=== PATIENT | female | born 1985 | race Caucasian/White ===

== ENCOUNTER 2017-05-02 12:43 | Emergency (ER) | payer SELFPAY ==
[~2017-05-02] VITALS: Ht 182.9 cm; Wt 107.0 kg
[~2017-05-02 12:43] MED LIST: HYDR-3533 PO; MEDR4PAK PO
[2017-05-02 12:44] VITALS: BP 129/75; PULSE 117; RESP 16; TEMP 98.7; O2SAT 95
== END 2017-05-02 15:03 | disposition left against medical advice (07) ==
LOC: NED 12:43
DX: R53.1 Weakness (principal)
CPT/HCPCS: 99281

== ENCOUNTER 2017-06-24 00:34 | Inpatient (IN) | payer SELFPAY ==
[~2017-06-24] VITALS: Ht 182.9 cm; Wt 98.0 kg
[2017-06-24 00:36] VITALS: BP 134/80; PULSE 115; RESP 16; TEMP 99.1; O2SAT 100
--- NOTE | 2017-06-24 01:10 | PD ---
HPI Chief Complaint: General Weakness Time Seen by Provider: 01:04 Travel History International Travel<30 days: No Contact w/Intl Traveler<30days: No Traveled to known affect area: No History of Present Illness HPI The patient is a 31 year old female who presents to the [facility] emergency department with a history of back pain and left hip pain that worsened approximately 1 1/2 months ago. The back pain is constant and first began last year. The left hip pain began 1 and 1/2 months ago and is coming and going. She has had intermittent fevers and chills with a MAXIMUM TEMPERATURE of 103.2- on 06/01. The patient reports that she was seen at [facility] regarding the symptoms approximately a month and a half ago and was diagnosed with severe sepsis and infection in her back. She reports that she left AGAINST MEDICAL ADVICE prior to the admission and further treatment. She denies having a primary care physician. She has not had any other treatment since then. She reports that the symptoms have worsened with time and now she has diffuse back pain. The patient reports that since June 04 she has also had tingling sensations in the right arm. She does have a history of carpal tunnel syndrome in the right wrist. She does have a history of IV drug use, however she reports that she last used in 2014. She reports that she has been grieving and depressed recently and has relapsed with using heroin, however she has been snorting it. The patient reports that she does have a history of hepatitis. She also has a prior history of endocarditis. She reports that over the last week she has had increased cough and congestion. She reports having intermittent chest pressure and shortness of breath. On review systems otherwise, she denies having any recent abdominal pain, vomiting, diarrhea, urinary symptoms, weakness of her extremities, slurred speech, facial droop, vision changes, or loss of bowel or bladder control. LMP: 03/2017, with prior history of irregular menstrual cycles. 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 Hx Anticoagulant Therapy: No Arthritis: No Asthma: Yes Blood Disorders: No Anxiety: Yes Depression: Yes Heart Rhythm Problems: No Cancer: No Cardiovascular Problems: No High Cholesterol: No Chemotherapy: No Chest Pain: No Congestive Heart Failure: No Cirrhosis: Yes (DRUG INDUCED) COPD: No Cerebrovascular Accident: No Diabetes: No Diminished Hearing: No Endocrine: Yes Gastrointestinal Disorders: Yes (HEMORRHOIDS ) GERD: No Genitourinary: Yes (UTI) Headaches: Yes Hiatal Hernia: No Immune Disorder: No Implanted Vascular Access Dvce: No Kidney Stones: Yes Musculoskeletal: Yes (CHRONIC BACK PAIN) Neurologic: Yes (RIGHT CARPAL TUNNEL,SEIZURE) Reproductive: No Respiratory: No Immunizations Current: Yes Migraines: Yes Renal Failure: No Seizures: Yes Sleep Apnea: No Thyroid Disease: No Ulcer: No Tetanus Vaccination: Never Vaccinated PNEUMOCCOCAL Vaccine (Year): 2 ?: Not LMP: 03/28/2017 : 5 Para: 3 Miscarriage: 2 Past Surgical History Narrative Surgical The patient's past surgical history is significant for a cholecystectomy, liver biopsy, biliary stent placement. Abdominal Surgery: No Cardiac Surgery: No Cholecystectomy: Yes (2009) Ear Surgery: No Endocrine Surgery: No Eye Surgery: No Genitourinary Surgery: No Hysterectomy: No Oral Surgery: No Thoracic Surgery: No Social History Alcohol Use: No Tobacco Use: Yes (previous smoker 1 - 1-1/2 ppd) Substance Use: Yes (snorting heroin) Allergies-Medications (Allergen,Severity, Reaction): Coded Allergies: acetaminophen (Unverified Allergy, Severe, SWELLING,HIVES, 06/24/17) ketorolac (Unverified Allergy, Severe, 06/24/17) propoxyphene (Unverified Allergy, Severe, SWELLING,HIVES, 06/24/17) tetanus immune globulin (Unverified Allergy, Severe, SICK, FEVER, 06/24/17 ) tetanus toxoid, adsorbed (Unverified Allergy, Severe, SWELLING,HIVES, 06/29) tramadol (Unverified Allergy, Severe, Anaphylaxis, 06/24/17) latex (Unverified Allergy, Intermediate, SWELLING, 06/24/17) Has an allergy to latex tape penicillin G (Unverified Allergy, Intermediate, rash, 06/24/17) lorazepam (Verified Adverse Reaction, Severe, 06/24/17) pt states "I wiged out on everyone and I can't remember anything that happened" Reported Meds & Prescriptions Reported Meds & Active Scripts Active Reported Medrol Dosepak (Methylprednisolone) 4 Mg Dspk 4 Mg PO DIRECTED Per Pharmacist direction Lortab (Hydrocodone-Acetaminophen) 5-325 Mg Tab 1 Tab PO Q6H PRN Review of Systems Except as stated in HPI: all other systems reviewed are Neg General / Constitutional: Positive: Fever, Chills Eyes: No: Visual changes HENT: Positive: Congestion, No: Headaches Cardiovascular: Positive: Chest Pain or Discomfort, Dyspnea on exertion Respiratory: Positive: Cough, Shortness of Breath Gastrointestinal: No: Nausea, Vomiting, Diarrhea, Abdominal Pain Genitourinary: No: Urgency, Frequency, Dysuria Musculoskeletal: Positive: Myalgias, Limited ROM, Pain Skin: No Rash Neurologic: No: Weakness, Focal Abnormalities, Change in Mentation, Slurred Speech, Sensory Disturbance Psychiatric: No: Depression Endocrine: No: Polydipsia Hematologic/Lymphatic: No: Easy Bruising Physical Exam Narrative General: The patient is well-developed well-nourished female in no acute distress, laying on her left side on my arrival to the room. Head and Neck exam: Head is normocephalic atraumatic. Eyes: EOMI, pupils are equal round and reactive to light. Nose: Midline septum with pink mucous membranes Mouth: Dentition unremarkable. Moist mucus membranes. Posterior oropharynx is not erythematous. No tonsillar hypertrophy. Uvula midline. Airway patent. Neck: No palpable lymphadenopathy. No nuchal rigidity. No thyromegaly. No spinous process tenderness to palpation. No step-off or crepitus. No erythema or ecchymosis. Cardiovascular: Regular rate and rhythm without murmurs, gallops, or rubs. No pulse deficit to the extremities. Lungs: Clear to auscultation bilaterally. No wheezes, rhonchi, or rales. Abdomen: Soft, without tenderness to palpation in all 4 quadrants of the abdomen. No guarding, rebound, or rigidity. Negative Hannacroix sign. Extremities: No clubbing, cyanosis, or edema. 2+ pulses in all 4 extremities. The patient reports having right-sided calf tenderness on palpation. She reports that this is chronic related to a prior history of DVT. Negative Homans sign. No palpable cords. Back: The patient has multiple areas of spinous process tenderness on palpation along the thoracic and lumbar spine as well as the sacrum. There is no step-off or crepitus. No erythema or ecchymosis. No costovertebral angle tenderness to palpation. Neurologic Exam: Cranial nerves 2-12 were intact on exam. Strength is 5/5 in all 4 extremities. No sensory deficits noted. Skin Exam: No rash noted. Intact skin that is warm and dry. Data Data Last Documented VS Vital Signs Date Time Temp Pulse Resp B/P (MAP) Pulse Ox O2 Delivery O2 Flow Rate FiO2 06/24/17 02:24 95 Room Air 06/24/17 02:12 93 16 06/24/17 00:36 99.1 Orders Orders Sepsis Workup Initiated (06/24/17 ) Complete Blood Count With Diff (06/24/17 01:32) Comprehensive Metabolic Panel (06/24/17 01:32) Lactic Acid Sepsis Protocol (06/24/17 01:32) Blood Culture (06/24/17 01:32) Iv Access Insert/Monitor (06/24/17 01:32) Oxygen Administration (06/24/17 01:32) Oximetry (06/24/17 01:32) Blood Glucose (06/24/17 01:32) Hip, Uni(Ap&Lat) W Ap Pelvis (06/24/17 03:44) Urinalysis - C+S If Indicated (06/24/17 03:45) Chest, Single Ap (06/24/17 03:45) Ed Urine Pregnancytest Poc (06/24/17 03:45) Sodium Chlor 0.9% 1000 Ml Inj (Ns 1000 M (06/24/17 04:00) Vancomycin Inj (Vancomycin Inj) (06/24/17 04:00) Aztreonam Inj (Azactam Inj) (06/24/17 04:00) Admit Order (Ed Use Only) (06/24/17 03:52) Metronidazole 500 Mg Inj (Flagyl 500 Mg (06/24/17 03:52) Creatine Kinase (Cpk) (06/24/17 03:57) Ckmb (Isoenzyme) Profile (06/24/17 03:57) Troponin I (06/24/17 03:57) Westergren Sedimentation Rate (06/24/17 03:57) Labs Laboratory Tests Test 06/24/17 01:45 06/24/17 03:52 White Blood Count 6.8 TH/MM3 Red Blood Count 5.03 MIL/MM3 Hemoglobin 13.3 GM/DL Hematocrit 38.9 % Mean Corpuscular Volume 77.4 FL Mean Corpuscular Hemoglobin 26.4 PG Mean Corpuscular Hemoglobin Concent 34.0 % Red Cell Distribution Width 14.7 % Platelet Count 238 TH/MM3 Mean Platelet Volume 7.4 FL Neutrophils (%) (Auto) 66.1 % Lymphocytes (%) (Auto) 25.0 % Monocytes (%) (Auto) 6.8 % Eosinophils (%) (Auto) 1.6 % Basophils (%) (Auto) 0.5 % Neutrophils # (Auto) 4.5 TH/MM3 Lymphocytes # (Auto) 1.7 TH/MM3 Monocytes # (Auto) 0.5 TH/MM3 Eosinophils # (Auto) 0.1 TH/MM3 Basophils # (Auto) 0.0 TH/MM3 CBC Comment DIFF FINAL Differential Comment Blood Urea Nitrogen 16 MG/DL Creatinine 0.86 MG/DL Random Glucose 68 MG/DL Total Protein 7.2 GM/DL Albumin 3.5 GM/DL Calcium Level 8.4 MG/DL Alkaline Phosphatase 89 U/L Aspartate Amino Transf (AST/SGOT) 29 U/L Alanine Aminotransferase (ALT/SGPT) 38 U/L Total Bilirubin 0.6 MG/DL Sodium Level 136 MEQ/L Potassium Level 3.9 MEQ/L Chloride Level 102 MEQ/L Carbon Dioxide Level 29.1 MEQ/L Anion Gap 5 MEQ/L Estimat Glomerular Filtration Rate 77 ML/MIN Lactic Acid Level 0.8 mmol/L Urine Color YELLOW Urine Turbidity HAZY Urine pH 5.5 Urine Specific Wisdom 1.033 Urine Protein 30 mg/dL Urine Glucose (UA) NEG mg/dL Urine Ketones NEG mg/dL Urine Occult Blood NEG Urine Nitrite NEG Urine Bilirubin NEG Urine Urobilinogen 2.0 MG/DL Urine Leukocyte Esterase MOD Urine RBC 6 /hpf Urine WBC 17 /hpf Urine Squamous Epithelial Cells 2 /hpf Urine Calcium Oxalate Crystals OCC /hpf Urine Bacteria RARE /hpf Urine Hyaline Casts 17 /lpf Urine Granular Casts 22 /lpf Urine Mucus MOD /lpf Microscopic Urinalysis Comment CULTURE INDICATED Urine Opiates Screen POS Urine Barbiturates Screen NEG Urine Amphetamines Screen POS Urine Benzodiazepines Screen NEG Urine Cocaine Screen NEG Urine Cannabinoids Screen POS MDM Medical Decision Making Medical Screen Exam Complete: Yes Emergency Medical Condition: Yes Medical Record Reviewed: Yes Interpretation(s) Last Impressions Chest X-Ray 06/24/17344 Signed Impressions: Service Date/Time: Saturday, June 24, 2017 03:59 - CONCLUSION: The lungs are clear. Anuj London MD Hip and Pelvis X-Ray 06/24/174 Signed Impressions: Service Date/Time: Saturday, June 24, 2017 03:59 - CONCLUSION: No evidence of recent bone injury. Anuj London MD Differential Diagnosis Discitis, versus epidural abscess, versus osteomyelitis of the spine, versus exacerbation of chronic back pain, versus sepsis Narrative Course During the course of the patients emergency department visit, the patients history, examination, and differential diagnosis were reviewed with the patient. The patient was placed on a surveillance monitor with oximetry and frequent blood pressure monitoring. The patient had IV access obtained and blood work sent for analysis. Blood cultures 2 were drawn, lactic acid was sent for analysis. Records from [facility] were obtained. The patient's [facility] visit was on May 01, 2017. The patient at that time underwent an MRI of the pelvis, CT scan of the abdomen and pelvis, blood work, and MRI of the lumbar spine with and without contrast. The lumbar spine MRI of the spine with and without contrast revealed prominent fluid within bilateral facet joints at L4-L5 with associated adjacent bone marrow edema and surrounding inflammation concerning for septic arthritis given the patient's history of prior IV drug use. No drainable paraspinal fluid collection or abscess seen at that time. There was also an endplate signal abnormality noted anteriorly at L5-S1 favored to represent degenerative change rather than osteomyelitis given intervening disc degeneration without disc edema. MRI of the pelvis shows findings within the distal aspect of the left gluteus marquez muscle belly suggestive of focal muscle strain from direct trauma versus focal myositis, somewhat atypical for small abscess. CT scan of the abdomen and pelvis at that time showed large bowel diverticulosis without diverticulitis, findings suggestive of hepatic cirrhosis with possible early portal hypertension. The patient was initially provided broad-spectrum antibiotic coverage to include Azactam, Flagyl, vancomycin IV. A call was placed out to the neurosurgeon on-call, Dr. Oseguera. He spoke to him at 4:15 AM regarding the patient's case. He was agreeable with the plan to continue antibiotic. He did recommend that the patient undergo MRI scanning again of the spine. He explained that this could wait until 7 AM. He will see the patient in consultation. The patients laboratory studies were reviewed and remarkable for a CBC that is unremarkable, sedimentation rate is 13. CMP is remarkable for a glucose of 68 which was checked for validity at the patient's bedside and was noted to be within normal limits. Lactic acid 0.8, CPK 55, troponin I less than 0.02, urinalysis shows moderate leukocyte esterase, RBC 6, WBC 17, rare bacteria, culture indicated. Urine drug screen was positive for opiates, amphetamines, cannabinoids. Radiology studies were reviewed and remarkable for a chest x-ray that showed no acute cardiopulmonary disease. X-ray of the left hip and pelvis shows no acute abnormality. The patients results were discussed with the patient, including the plan of care. I explained that further testing and/ or monitoring is indicated based on the patients history, examination, and/ or laboratory findings. Therefore, I recommended admission for additional evaluation. The patient expressed understanding and was agreeable with this plan. The patient was admitted to the hospital in guarded condition and sent to a bed under the care of [facility]. Physician Communication Physician Communication The patient's case including history, pertinent physical examination findings, and laboratory studies were discussed with Dr. Campos and Dr. Oseguera. It was agreed that the patient would be admitted to the [facility] service. Diagnosis Primary Impression: Septic arthritis Qualified Codes: M00.9 - Pyogenic arthritis, unspecified Additional Impression: Back pain Qualified Codes: M54.9 - Dorsalgia, unspecified Admitting Information Admitting Physician Requests: Eboni Garay MD Jun 24, 2017 01:10
[2017-06-24 02:09] LABS: AUTOMATED NEUTROPHIL # 4.5 TH/MM3 (1.8-7.7); BASOPHIL % 0.5 % (0.0-2.0); EOSINOPHIL # 0.1 TH/MM3 (0-0.4); EOSINOPHIL % 1.6 % (0.0-4.0); HEMATOCRIT 38.9 % (35.0-46.0); HEMO FLAGS DIFF FINAL; LYMPHOCYTE # 1.7 TH/MM3 (1.0-4.8); MEAN CELL VOLUME 77.4 FL (80.0-100.0); MEAN CORPUSCULAR HEMOGLOBIN 26.4 PG (27.0-34.0); MONO % 6.8 % (0.0-8.0); NEUT % 66.1 % (16.0-70.0); PLATELET COUNT 238 TH/MM3 (150-450); RED BLOOD COUNT 5.03 MIL/MM3 (4.00-5.30); RED CELL DISTRIBUTION WIDTH 14.7 % (11.6-17.2); WHITE BLOOD COUNT 6.8 TH/MM3 (4.0-11.0)
[2017-06-24 02:12] VITALS: BP 107/54; PULSE 93; RESP 16; O2SAT 95
[2017-06-24 02:24] VITALS: O2SAT 95
[2017-06-24 02:32] LABS: ALKALINE PHOSPHATASE 89 U/L (45-117); TOTAL BILIRUBIN ADULT 0.6 MG/DL (0.2-1.0)
[2017-06-24 02:33] LABS: ALT (GPT) 38 U/L (10-53); ANION GAP 5 MEQ/L (5-15); AST (GOT) 29 U/L (15-37); BICARBONATE 29.1 MEQ/L (21.0-32.0); BLOOD UREA NITROGEN 16 MG/DL (7-18); CHLORIDE 102 MEQ/L (98-107); GLOMERULAR FILTRATION RATE 77 ML/MIN (>89); SODIUM (NA) 136 MEQ/L (136-145)
[2017-06-24 02:36] LABS: POTASSIUM 3.9 MEQ/L (3.5-5.1)
[2017-06-24] MEDS ORDERED: metroNIDAZOLE 500 MG INJ 100 ML IV STA (03:52)
[2017-06-24] MEDS ORDERED: SODIUM CHLOR 0.9% 1000 ML INJ 1,000 ML IV ONE (04:00)
[2017-06-24] MEDS ORDERED: AZTREONAM INJ 2,000 MG in SODIUM CHLORIDE 0.9% INJ 100 ML IV ONE (04:00)
[2017-06-24] MEDS ORDERED: VANCOMYCIN INJ 1,000 MG in SODIUM CHLOR 0.9% 250 ML INJ 250 ML IV ONE (04:00)
--- NOTE | 2017-06-24 04:32 | RADRPT ---
EXAM DATE/TIME: 06/24/2017 03:59 [facility] COMPARISON: No previous studies available for comparison. INDICATIONS : Left hip pain post fall. MEDICAL HISTORY : Sepsis. SURGICAL HISTORY : None. ENCOUNTER: Initial ACUITY: 1 day PAIN SCORE: 7/10 LOCATION: Left hip. FINDINGS: Examination of the left hip was performed with AP Pelvis. The primary and secondary trabecular patte rn of the femoral neck is intact. The hip joint is of normal width without significant sclerosis or bony hypertrophy. The acetabulum is grossly intact. CONCLUSION: No evidence of recent bone injury. Anuj London MD on June 24, 2017 at 4:31 Board Certified Radiologist. This report was verified electronically.
--- NOTE | 2017-06-24 04:32 | RADRPT ---
EXAM DATE/TIME: 06/24/2017 03:59 [facility] COMPARISON: CHEST SINGLE AP, May 13, 2016, 17:09. INDICATIONS : Chest pain. MEDICAL HISTORY : Sepsis. SURGICAL HISTORY : None. ENCOUNTER: Initial ACUITY: 1 day PAIN SCORE: 1/10 LOCATION: Bilateral chest FINDINGS: A single view of the chest demonstrates the lungs to be symmetrically aerated without evidence of mas s, infiltrate or effusion. The cardiomediastinal contours are unremarkable. Osseous structures are intact. CONCLUSION: The lungs are clear. Anuj London MD on June 24, 2017 at 4:30 Board Certified Radiologist. This report was verified electronically.
[2017-06-24 04:36] LABS: BACTERIA, URINE RARE /hpf; BLOOD, URINE NEG (NEG); CALCIUM OXALATE CRYSTALS,URINE OCC /hpf; COMMENT (UR) CULTURE INDICATED; CULTURE IF INDICATED CULTURE INDICATED; GLUCOSE,URINE NEG (NEG); GRANULAR CAST, URINE 22 /lpf; HYALINE CAST, URINE 17 /lpf (RARE); KETONE, URINE NEG (NEG); MUCUS URINE MOD /lpf (OCC); NITRITE,URINE NEG (NEG); PH, URINE 5.5 (5.0-8.5); SQUAMOUS EPITHELIAL CELL URINE 2 /hpf (0-5); URINE COLOR YELLOW (YELLW/STRAW)
[2017-06-24 04:41] LABS: CREATINE KINASE 55 U/L (26-192)
[2017-06-24] MEDS ORDERED: ONDANSETRON HCL 4 MG/2 ML VIAL IV PUSH ONE (04:45)
[2017-06-24] MEDS ORDERED: HYDROmorphone HCL PF 2 MG/ML VIAL IV PUSH ONE (05:00)
[2017-06-24 05:19] VITALS: BP 108/61; PULSE 91; RESP 16; O2SAT 95
[2017-06-24] MEDS ORDERED: SODIUM CHLORIDE 0.9% FLUSH 10 ML FLUSH IV FLUSH PRN (06:15)
[2017-06-24] MEDS ORDERED: Vancomycin Consult Pharmacy 1 EA OTHER SCH (06:15)
[2017-06-24] MEDS ORDERED: ONDANSETRON HCL 4 MG/2 ML VIAL IVP PRN (06:15)
[2017-06-24] MEDS ORDERED: NALOXONE HCL 0.4 MG/ML AMP IV PUSH PRN (06:15)
[2017-06-24] MEDS ORDERED: VANCOMYCIN 1,000 MG/NS 250 ML IV SCH ×2 (07:30)
[2017-06-24 08:24] VITALS: BP 115/62; PULSE 94; RESP 18; TEMP 98.7; O2SAT 98
--- NOTE | 2017-06-24 08:58 | HHI.HP ---
HPI Service [facility] Primary Care Physician No Primary Care Physician Admission Diagnosis Back pain, history of MRI suspicious for spinal infection Diagnoses: Chief Complaint: Back pain Left hip pain Fever and chills Dysuria Travel History International Travel<30 Days: No Contact w/Intl Traveler <30 Da: No Traveled to Known Affected Are: No History of Present Illness Written by Joann Summers, acting as scribe for Dr. Chavez on 06/24/17 at 08: 57. 31yo female with PMHX significant for kidney stones, IVDU, hepatitis C, endocarditis, seizure, asthma, migraines and DVT RLE complaining of back and left hip pain with associated fever and chills. She states she began having back pain last year. She has been having left hip pain for the past 6 weeks. Reportedly, her temperature was as high as 103.2 on 06/01. She was seen at [facility] and diagnosed with severe sepsis with infection in her back. She reports leaving their facility AMA. Per review of the ED note, Records from [facility] were obtained. The patient's [facility] visit was on May 01, 2017. The patient at that time underwent an MRI of the pelvis, CT scan of the abdomen and pelvis, blood work, and MRI of the lumbar spine with and without contrast. The lumbar spine MRI of the spine with and without contrast revealed prominent fluid within bilateral facet joints at L4-L5 with associated adjacent bone marrow edema and surrounding inflammation concerning for septic arthritis given the patient's history of prior IV drug use. No drainable paraspinal fluid collection or abscess seen at that time. There was also an endplate signal abnormality noted anteriorly at L5-S1 favored to represent degenerative change rather than osteomyelitis given intervening disc degeneration without disc edema. MRI of the pelvis shows findings within the distal aspect of the left gluteus marquez muscle belly suggestive of focal muscle strain from direct trauma versus focal myositis, somewhat atypical for small abscess. CT scan of the abdomen and pelvis at that time showed large bowel diverticulosis without diverticulitis, findings suggestive of hepatic cirrhosis with possible early portal hypertension. She complains of dysuria and that her urine is more concentrated. Our ED physician discussed with neurosurgeon Dr. Oseguera who recommended another MRI of the spine. During my interview, patient became very upset and began making derogatory remarks stating she is "not going to stay in the hospital and be in pain and go through withdrawals". She stated she will go home and medicate herself. She is extremely noncompliant. She is refusing to have the MRI study performed ordered by Dr. Oseguera. Review of Systems Except as stated in HPI: all other systems reviewed are Neg Past Family Social History Past Medical History Hepatitis C IVDU/polysubstance abuse. Patient has used IV Dilaudid in the past. HX of sepsis secondary to staph aureus 05/2016 Hx of septic left knee joint Hx of endocarditis Seizures Anxiety/depression Liver cirrhosis DVT RLE Migraines Asthma Past Surgical History Liver biopsy Cholecystectomy Biliary stent placement Reported Medications Medication reconciliation not updated Allergies: Coded Allergies: acetaminophen (Unverified Allergy, Severe, SWELLING,HIVES, 06/24/17) ketorolac (Unverified Allergy, Severe, 06/24/17) propoxyphene (Unverified Allergy, Severe, SWELLING,HIVES, 06/24/17) tetanus immune globulin (Unverified Allergy, Severe, SICK, FEVER, 06/24/17 ) tetanus toxoid, adsorbed (Unverified Allergy, Severe, SWELLING,HIVES, 06/29) tramadol (Unverified Allergy, Severe, Anaphylaxis, 06/24/17) latex (Unverified Allergy, Intermediate, SWELLING, 06/24/17) Has an allergy to latex tape penicillin G (Unverified Allergy, Intermediate, rash, 06/24/17) lorazepam (Verified Adverse Reaction, Severe, 06/24/17) pt states "I wiged out on everyone and I can't remember anything that happened" Active Ordered Medications Current Medications Medications (Trade) Dose Ordered Sig/Radha Route Start Time Stop Time Status Last Admin (NS Flush) 2 ml UNSCH PRN IV FLUSH 06/24/17 06:15 (NS Flush) 2 ml BID IV FLUSH 06/24/17 09:00 (Zofran Inj) 4 mg Q6H PRN IVP 06/24/17 06:15 (Narcan Inj) 0.4 mg UNSCH PRN IV PUSH 06/24/17 06:15 Aztreonam 2000 mg/ Sodium Chloride 100 ml @ 200 mls/hr Q8H IV 06/24/17 12:27 Pharmacy Profile Note 0 ml @ 0 mls/hr UNSCH OTHER 06/24/17 06:15 Metronidazole 100 ml @ 100 mls/hr Q8H IV 06/24/17 13:00 Vancomycin HCl 1000 mg/Sodium Chloride 250 ml @ 250 mls/hr DAILY@0730 IV 06/24/17 07:30 06/24/17 10:00 Family History CAD Diabetes Social History Patient smokes 1 pack cigarettes daily. She admits to IVDU. She denies any EtOH use. She recently lost her . Physical Exam Vital Signs Vital Signs Date Time Temp Pulse Resp B/P (MAP) Pulse Ox O2 Delivery O2 Flow Rate FiO2 06/24/17 08:24 98.7 94 18 115/62 (79) 98 06/24/17 05:19 91 16 108/61 (77) 95 Room Air 06/24/17 02:24 95 Room Air 06/24/17 02:12 93 16 107/54 (71) 95 Room Air 06/24/17 00:36 99.1 115 16 134/80 (98) 100 Physical Exam GENERAL: This is a well-nourished, well-developed patient, in no apparent distress. Awake and alert, tearful. SKIN: No rashes, ecchymoses or lesions. Cool and dry. HEAD: Atraumatic. Normocephalic. No temporal or scalp tenderness. EYES: Pupils equal round and reactive. Extraocular motions intact. No scleral icterus. No injection or drainage. ENT: Nose without bleeding or purulent drainage. Throat without erythema, tonsillar hypertrophy or exudate. Uvula midline. Airway patent. Extremely poor dentition noted. NECK: Trachea midline. No lymphadenopathy. Supple, nontender, no meningeal signs. CARDIOVASCULAR: Regular rate and rhythm without murmurs, gallops, or rubs. RESPIRATORY: Breath sounds equal bilaterally. (+)Few scattered wheezes noted throughout lung mcdonnell. GASTROINTESTINAL: Abdomen soft, non-tender, nondistended. No hepato-splenomegaly , or palpable masses. No guarding. (+)Right sided CVAT MUSCULOSKELETAL: Extremities without clubbing, cyanosis, or edema. No joint tenderness, effusion, or edema noted. No calf tenderness. (+)tenderness to palpation over right sided paraspinous muscles. NEUROLOGICAL: Awake and alert. Motor and sensory grossly within normal limits. Five out of 5 muscle strength in all muscle groups. No focal neurologic finding appreciated. Normal speech. Laboratory Laboratory Tests Test 06/24/17 01:45 06/24/17 03:52 06/24/17 04:15 White Blood Count 6.8 Red Blood Count 5.03 Hemoglobin 13.3 Hematocrit 38.9 Mean Corpuscular Volume 77.4 Mean Corpuscular Hemoglobin 26.4 Mean Corpuscular Hemoglobin Concent 34.0 Red Cell Distribution Width 14.7 Platelet Count 238 Mean Platelet Volume 7.4 Neutrophils (%) (Auto) 66.1 Lymphocytes (%) (Auto) 25.0 Monocytes (%) (Auto) 6.8 Eosinophils (%) (Auto) 1.6 Basophils (%) (Auto) 0.5 Neutrophils # (Auto) 4.5 Lymphocytes # (Auto) 1.7 Monocytes # (Auto) 0.5 Eosinophils # (Auto) 0.1 Basophils # (Auto) 0.0 CBC Comment DIFF FINAL Differential Comment Blood Urea Nitrogen 16 Creatinine 0.86 Random Glucose 68 Total Protein 7.2 Albumin 3.5 Calcium Level 8.4 Alkaline Phosphatase 89 Aspartate Amino Transf (AST/SGOT) 29 Alanine Aminotransferase (ALT/SGPT) 38 Total Bilirubin 0.6 Sodium Level 136 Potassium Level 3.9 Chloride Level 102 Carbon Dioxide Level 29.1 Anion Gap 5 Estimat Glomerular Filtration Rate 77 Lactic Acid Level 0.8 Urine Color YELLOW Urine Turbidity HAZY Urine pH 5.5 Urine Specific [place] 1.033 Urine Protein 30 Urine Glucose (UA) NEG Urine Ketones NEG Urine Occult Blood NEG Urine Nitrite NEG Urine Bilirubin NEG Urine Urobilinogen 2.0 Urine Leukocyte Esterase MOD Urine RBC 6 Urine WBC 17 Urine Squamous Epithelial Cells 2 Urine Calcium Oxalate Crystals OCC Urine Bacteria RARE Urine Hyaline Casts 17 Urine Granular Casts 22 Urine Mucus MOD Microscopic Urinalysis Comment CULTURE INDICATED Erythrocyte Sedimentation Rate 13 Total Creatine Kinase 55 Troponin I LESS THAN 0.02 Date/Time Source Procedure Growth Status 06/24/17 01:50 Blood Peripheral Aerobic Blood Culture Pending Received 06/24/17 01:50 Blood Peripheral Anaerobic Blood Culture Pending Received 06/24/17 03:52 Urine Clean Catch Urine Culture Pending Received Result Diagram: 06/24/17 0145 06/24/17 0145 Imaging Last Impressions Chest X-Ray 06/24/175 Signed Impressions: Service Date/Time: Saturday, June 24, 2017 03:59 - CONCLUSION: The lungs are clear. Anuj London MD Hip and Pelvis X-Ray 06/24/17 0344 Signed Impressions: Service Date/Time: Saturday, June 24, 2017 03:59 - CONCLUSION: No evidence of recent bone injury. Anuj London MD Per review of ED note: Records from [facility] were obtained. The patient's [facility] visit was on May 01, 2017. The patient at that time underwent an MRI of the pelvis, CT scan of the abdomen and pelvis, blood work, and MRI of the lumbar spine with and without contrast. The lumbar spine MRI of the spine with and without contrast revealed prominent fluid within bilateral facet joints at L4-L5 with associated adjacent bone marrow edema and surrounding inflammation concerning for septic arthritis given the patient's history of prior IV drug use. No drainable paraspinal fluid collection or abscess seen at that time. There was also an endplate signal abnormality noted anteriorly at L5-S1 favored to represent degenerative change rather than osteomyelitis given intervening disc degeneration without disc edema. MRI of the pelvis shows findings within the distal aspect of the left gluteus marquez muscle belly suggestive of focal muscle strain from direct trauma versus focal myositis, somewhat atypical for small abscess. CT scan of the abdomen and pelvis at that time showed large bowel diverticulosis without diverticulitis, findings suggestive of hepatic cirrhosis with possible early portal hypertension. Caprini VTE Risk Assessment Caprini VTE Risk Assessment: No/Low Risk (score <= 1) Caprini Risk Assessment Model Point Value = 1 Point Value = 2 Point Value = 3 Point Value = 5 Age 41-60 Minor surgery BMI > 25 kg/m2 Swollen legs Varicose veins or History of unexplained or recurrent spontaneous Oral contraceptives or hormone replacement Sepsis (< 1 month) Serious lung disease, including pneumonia (< 1 month) Abnormal pulmonary function Acute myocardial infarction Congestive heart failure (< 1 month) History of inflammatory bowel disease Medical patient at bed rest Age 61-74 Arthroscopic surgery Major open surgery (> 45 min) Laparoscopic surgery (> 45 min) Malignancy Confined to bed (> 72 hours) Immobilizing plaster cast Central venous access Age >= 75 History of VTE Family history of VTE Factor V Leiden Prothrombin [id number] Lupus anticoagulant Anticardiolipin antibodies Elevated serum homocysteine Heparin-induced thrombocytopenia Other congenital or acquired thrombophilia Stroke (< 1 month) Elective arthroplasty Hip, pelvis, or leg fracture Acute spinal cord injury (< 1 month) Prophylaxis Regimen Total Risk Factor Score Risk Level Prophylaxis Regimen 0-1 Low Early ambulation 2 Moderate Order ONE of the following: *Sequential Compression Device (SCD) *Heparin 5000 units SQ BID 3-4 Higher Order ONE of the following medications: *Heparin 5000 units SQ TID *Enoxaparin/Lovenox 40 mg SQ daily (WT < 150 kg, CrCl > 30 mL/min) *Enoxaparin/Lovenox 30 mg SQ daily (WT < 150 kg, CrCl > 10-29 mL/min) *Enoxaparin/Lovenox 30 mg SQ BID (WT < 150 kg, CrCl > 30 mL/min) AND/OR *Sequential Compression Device (SCD) 5 or more Highest Order ONE of the following medications: *Heparin 5000 units SQ TID (Preferred with Epidurals) *Enoxaparin/Lovenox 40 mg SQ daily (WT < 150 kg, CrCl > 30 mL/min) *Enoxaparin/Lovenox 30 mg SQ daily (WT < 150 kg, CrCl > 10-29 mL/min) *Enoxaparin/Lovenox 30 mg SQ BID (WT < 150 kg, CrCl > 30 mL/min) AND *Sequential Compression Device (SCD) Assessment and Plan Assessment and Plan 31yo female with PMHX significant for kidney stones, IVDU, hepatitis C, endocarditis, seizure, asthma, migraines and DVT RLE complaining of back and left hip pain with associated fever and chills. Suspected discitis/osteomyelitis in patient with hx of IVDU/polysubstance abuse vs symptomatic nephrolithiasis HX of sepsis secondary to staph aureus 05/2016 Reports from [facility] reviewed: MRI lumbar spine showing fluid within the bilateral facet joints at L4 5 with associated adjacent bone marrow edema and surrounding inflammation concerning for septic arthritis given the patient's history of prior IV drug use. No drainable paraspinal fluid collection or abscess seen at that time. MRI of the pelvis shows findings within the distal aspect of the left gluteus marquez muscle belly suggestive of focal muscle strain from direct trauma versus focal myositis, somewhat atypical for small abscess. CT abd/pelvis shows large bowel diverticulosis without diverticulitis, findings suggestive of hepatic cirrhosis with possible early portal hypertension. - xray left hip unremarkable, images personally reviewed. - patient given broad spectrum antibiotics to include Azactam, Flagyl and IV Vancomycin. Hold off on giving any further antibiotics until ID gives recommendations. - ID consulted, appreciate recommendations - Consult Dr. Oseguera, appreciate assistance. MRI spine ordered per Dr. Oseguera recommendations. Follow up on results. - ESR 13, WBC 6.8 - UA positive calcium oxalate crystals and RBCs. Obtain CT abd/pelvis to r/ o possible kidney stones - follow up on blood culture results UTI - UA suggestive of UA with mod leukocytes, 17 WBCs and rare bacteria - follow up on final urine culture results IVDU Polysubstance abuse - patient admits to snorting Heroin last night - denies any IVDU since 2014 - drug seeking behavior. Patient initially listing allergies to Toradol, Darvocet, Morphine and Tramadol. When patient informed there is no Dilaudid in the hospital, patient stated she never said she had an allergy to Morphine. Given Morphine 4mg IV x 1 dose. Liver cirrhosis Hx of hepatitis C - standard precautions - avoid hepatotoxic agents Discussed Condition With Patient, nursing staff This note was transcribed by scribe [Joann Summers ]. I, Dr. Jb Chavez personally performed the history, physical exam, and medical decision making; and confirmed the accuracy of the information in the transcribed note. Authenticated by Dr. Jb Chavez on 06/24/17 at 08:57. Physician Certification 2 Midnight Certification Type: Admission for Inpatient Services Order for Inpatient Services The services are ordered in accordance with Medicare regulations or non- Medicare payer requirements, as applicable. In the case of services not specified as inpatient-only, they are appropriately provided as inpatient services in accordance with the 2-midnight benchmark. Estimated LOS (days): 3 3 days is the estimated time the patient will need to remain in the hospital, assuming treatment plan goals are met and no additional complications. Post-Hospital Plan: Not yet determined Joann Summers Jun 24, 2017 08:58 Jb Chavez MD Jun 24, 2017 11:42
[2017-06-24] MEDS ORDERED: SODIUM CHLORIDE 0.9% FLUSH 10 ML FLUSH IV FLUSH SCH (09:00)
[2017-06-24] MEDS ORDERED: MORPHINE SULFATE 4 MG/ML INJ IV PUSH ONE (10:30)
[2017-06-24] MEDS ORDERED: AZTREONAM INJ 2,000 MG in SODIUM CHLORIDE 0.9% INJ 100 ML IV SCH (12:27)
[2017-06-24] MEDS ORDERED: metroNIDAZOLE 500 MG INJ 100 ML IV SCH (13:00)
[2017-06-24] MEDS ORDERED: VANCOMYCIN INJ 2,000 MG in SODIUM CHLORID 0.9% 500 ML INJ 500 ML IV SCH (14:00)
[2017-06-26] MEDS ORDERED: PHARMACY ORDERED LAB ONE (01:45)
== END 2017-06-24 12:22 | disposition left against medical advice (07) | DRG 552 ==
LOC: NEPE 00:34 → NEDA 03:57 → NEPFCDU 06:58
PROVIDERS: ADMIT Hospitalist; ATTEND Hospitalist
DX: M46.40 Discitis, unspecified, site unspecified (principal); M00.9 Pyogenic arthritis, unspecified; K76.6 Portal hypertension; K74.60 Unspecified cirrhosis of liver; N39.0 Urinary tract infection, site not specified; Z86.718 Personal history of other venous thrombosis and embolism; Z87.442 Personal history of urinary calculi; Z91.19 Patient's noncompliance with other medical treatment and regimen; Z76.5 Malingerer [conscious simulation]; M51.37 Other intervertebral disc degeneration, lumbosacral region; K57.90 Diverticulosis of intestine, part unspecified, without perforation or abscess without bleeding; J45.909 Unspecified asthma, uncomplicated; F17.210 Nicotine dependence, cigarettes, uncomplicated; M25.552 Pain in left hip; R30.0 Dysuria; B19.20 Unspecified viral hepatitis C without hepatic coma; F32.9 Major depressive disorder, single episode, unspecified; F41.9 Anxiety disorder, unspecified; G43.909 Migraine, unspecified, not intractable, without status migrainosus; Z91.040 Latex allergy status
CPT/HCPCS: 71010; 73502; 80053; 80307; 81001; 82550; 83605; 84484; 84703; 85025; 85652; 87040; 87077; 87086; 87186; J1170; J2270; J2405; J3370; J7030; J7050

== ENCOUNTER 2017-08-10 06:29 | Emergency (ER) | payer SELFPAY ==
[~2017-08-10] VITALS: Ht 182.9 cm; Wt 100.0 kg
[2017-08-10 06:33] VITALS: BP 140/85; PULSE 120; RESP 16; TEMP 98.7; O2SAT 98
[2017-08-10] MEDS ORDERED: SODIUM CHLOR 0.9% 1000 ML INJ 1,000 ML IV ONE ×3 (07:30→09:15)
--- NOTE | 2017-08-10 08:05 | PD ---
HPI . Feeling poorly Chief Complaint: Anxiety Time Seen by Provider: 07:04 Travel History International Travel<30 days: No Contact w/Intl Traveler<30days: No Traveled to known affect area: No History of Present Illness HPI This patient is not a very good historian. She was reluctant to talk to me stating that I was the 5th person who had asked her why she was here today. Most of the history that I thought was from reviewing old records, reviewing the nurse's notes and direct questioning with ROS. 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 These septic arthritis was diagnosed in April. She was at [facility] when this was diagnosed. However, she left AMA before she received adequate treatment. She presented here in June with the same complaint but again left AMA before she could be treated. She comes in today complaining with a 4-7 day history of feeling poorly and she admits to nausea, dizziness, myalgias, left flank pain, straining to urinate, cough and congestion. No modifying factors. PFSH Past Medical History Hx Anticoagulant Therapy: No Arthritis: No Asthma: Yes Blood Disorders: No Anxiety: Yes Depression: Yes Heart Rhythm Problems: No Cancer: No Cardiovascular Problems: No High Cholesterol: No Chemotherapy: No Chest Pain: No Congestive Heart Failure: No Cirrhosis: Yes (DRUG INDUCED) COPD: No Cerebrovascular Accident: No Diabetes: No Diminished Hearing: No Endocrine: Yes Gastrointestinal Disorders: Yes (HEMORRHOIDS ) GERD: No Genitourinary: Yes (UTI) Headaches: Yes Hiatal Hernia: No Immune Disorder: No Implanted Vascular Access Dvce: No Kidney Stones: Yes Musculoskeletal: Yes (CHRONIC BACK PAIN) Neurologic: Yes (RIGHT CARPAL TUNNEL,SEIZURE) Reproductive: No Respiratory: No Immunizations Current: Yes Migraines: Yes Renal Failure: No Seizures: Yes Sleep Apnea: No Thyroid Disease: No Ulcer: No Tetanus Vaccination: Never Vaccinated Influenza Vaccination: No PNEUMOCCOCAL Vaccine (Year): 2 ?: Unknown : 5 Para: 3 Miscarriage: 2 Past Surgical History Abdominal Surgery: No Cardiac Surgery: No Cholecystectomy: Yes (2009) Ear Surgery: No Endocrine Surgery: No Eye Surgery: No Genitourinary Surgery: No Hysterectomy: No Oral Surgery: No Thoracic Surgery: No Social History Alcohol Use: No Tobacco Use: Yes (previous smoker 1 - 1-1/2 ppd) Substance Use: Yes (snorting heroin) Allergies-Medications (Allergen,Severity, Reaction): Coded Allergies: acetaminophen (Unverified Allergy, Severe, SWELLING,HIVES, 08/10/17) ketorolac (Unverified Allergy, Severe, 08/10/17) propoxyphene (Unverified Allergy, Severe, SWELLING,HIVES, 08/10/17) tetanus immune globulin (Unverified Allergy, Severe, SICK, FEVER, 08/10/17) tetanus toxoid, adsorbed (Unverified Allergy, Severe, SWELLING,HIVES, 08/10) tramadol (Unverified Allergy, Severe, Anaphylaxis, 08/10/17) latex (Unverified Allergy, Intermediate, SWELLING, 08/10/17) Has an allergy to latex tape penicillin G (Unverified Allergy, Intermediate, rash, 08/10/17) lorazepam (Verified Adverse Reaction, Severe, 08/10/17) pt states "I wiged out on everyone and I can't remember anything that happened" Reported Meds & Prescriptions Reported Meds & Active Scripts Active No Active Prescriptions or Reported Medications Review of Systems ROS Limitations: Poor Historian Except as stated in HPI: all other systems reviewed are Neg General / Constitutional: Positive: Fever, Chills HENT: Positive: Lightheadedness, Congestion Respiratory: Positive: Cough Gastrointestinal: Positive: Nausea Genitourinary: Positive: Hesitancy, Flank Pain Musculoskeletal: Positive: Myalgias Physical Exam Narrative GENERAL: Awake and alert. She speaks very softly. She only answers direct questions. SKIN: warm/dry. Numerous scars compatible with IV drug abuse and popping. HEAD: Normocephalic. Atraumatic. EYES: Pupils equal and round. No scleral icterus. No injection or drainage. ENT: No nasal bleeding or discharge. Mucous membranes pink and moist. NECK: Trachea midline. Full range of motion without pain.. CARDIOVASCULAR: Sinus tachycardia. No murmurs heard. RESPIRATORY: No accessory muscle use. Clear to auscultation. Breath sounds equal bilaterally. GASTROINTESTINAL: Abdomen soft. Nontender. Bowel sounds present. Nondistended. MUSCULOSKELETAL: No obvious deformities. Tenderness to percussion of the mid lumbar spine. NEUROLOGICAL: Awake and alert. No obvious cranial nerve deficits. Motor grossly within normal limits. Normal speech. PSYCHIATRIC: Appropriate mood and affect; insight and judgment normal. Data Data Last Documented VS Vital Signs Date Time Temp Pulse Resp B/P (MAP) Pulse Ox O2 Delivery O2 Flow Rate FiO2 08/10/17 10:58 93 16 127/71 (89) 98 Room Air 08/10/17 06:33 98.7 Orders Orders Sepsis Workup Initiated (08/10/17 ) Complete Blood Count With Diff (08/10/17 07:23) Comprehensive Metabolic Panel (08/10/17 07:23) Lactic Acid Sepsis Protocol (08/10/17 07:23) Urinalysis - C+S If Indicated (08/10/17 07:23) Influenzae A/B Antigen (08/10/17 07:23) Blood Culture (08/10/17 07:23) Chest, Single Ap (08/10/17 07:23) Ecg Monitoring (08/10/17 07:23) Iv Access Insert/Monitor (08/10/17 07:23) Oximetry (08/10/17 07:23) Ed Urine Pregnancytest Poc (08/10/17 07:23) Drug Screen, Random Urine (08/10/17 07:23) Sodium Chlor 0.9% 1000 Ml Inj (Ns 1000 M (08/10/17 07:30) Mri L Spine W&W/O Contrast (08/10/17 07:23) Sodium Chlor 0.9% 1000 Ml Inj (Ns 1000 M (08/10/17 09:15) Sodium Chlor 0.9% 1000 Ml Inj (Ns 1000 M (08/10/17 09:15) Labs Laboratory Tests Test 08/10/17 07:30 08/10/17 07:35 08/10/17 07:45 Urine Color YELLOW Urine Turbidity HAZY Urine pH 6.0 Urine Specific [place] 1.029 Urine Protein 30 mg/dL Urine Glucose (UA) NEG mg/dL Urine Ketones NEG mg/dL Urine Occult Blood NEG Urine Nitrite NEG Urine Bilirubin NEG Urine Urobilinogen 2.0 MG/DL Urine Leukocyte Esterase SMALL Urine RBC 1 /hpf Urine WBC 4 /hpf Urine Squamous Epithelial Cells 11 /hpf Urine Calcium Oxalate Crystals MANY /hpf Urine Mucus MOD /lpf Microscopic Urinalysis Comment CULT NOT INDICATED Urine Opiates Screen POS Urine Barbiturates Screen NEG Urine Amphetamines Screen POS Urine Benzodiazepines Screen NEG Urine Cocaine Screen POS Urine Cannabinoids Screen POS White Blood Count 6.3 TH/MM3 Red Blood Count 4.79 MIL/MM3 Hemoglobin 12.3 GM/DL Hematocrit 35.8 % Mean Corpuscular Volume 74.7 FL Mean Corpuscular Hemoglobin 25.6 PG Mean Corpuscular Hemoglobin Concent 34.2 % Red Cell Distribution Width 14.3 % Platelet Count 259 TH/MM3 Mean Platelet Volume 6.9 FL Neutrophils (%) (Auto) 78.5 % Lymphocytes (%) (Auto) 14.2 % Monocytes (%) (Auto) 6.3 % Eosinophils (%) (Auto) 0.5 % Basophils (%) (Auto) 0.5 % Neutrophils # (Auto) 5.0 TH/MM3 Lymphocytes # (Auto) 0.9 TH/MM3 Monocytes # (Auto) 0.4 TH/MM3 Eosinophils # (Auto) 0.0 TH/MM3 Basophils # (Auto) 0.0 TH/MM3 CBC Comment DIFF FINAL Differential Comment Blood Urea Nitrogen 14 MG/DL Creatinine 0.84 MG/DL Random Glucose 95 MG/DL Total Protein 7.7 GM/DL Albumin 3.6 GM/DL Calcium Level 9.0 MG/DL Alkaline Phosphatase 106 U/L Aspartate Amino Transf (AST/SGOT) 22 U/L Alanine Aminotransferase (ALT/SGPT) 22 U/L Total Bilirubin 0.7 MG/DL Sodium Level 137 MEQ/L Potassium Level 3.9 MEQ/L Chloride Level 102 MEQ/L Carbon Dioxide Level 28.0 MEQ/L Anion Gap 7 MEQ/L Estimat Glomerular Filtration Rate 80 ML/MIN Lactic Acid Level 0.4 mmol/L MDM Medical Decision Making Medical Screen Exam Complete: Yes Emergency Medical Condition: Yes Medical Record Reviewed: Yes (history is significant for hep C, IVDA, endocarditis, septic arthritis in lumbar spine) Differential Diagnosis Differential diagnosis includes but is not limited to sepsis, septic arthritis, influenza or UTI Narrative Course This is an IVD abuser with a previouos h/o septic arthritis of the lumbar spine which was untreated as well as a h/o endocarditis who presents stating that she just feels poorly. Septic w/u is in process as well as an MRI of her spine. This patient has several times for something for anxiety. She reports an allergy to Ativan. CBC & BMP Diagram 08/10/17 07:35 Total Protein 7.7, Albumin 3.6, Calcium Level 9.0, Alkaline Phosphatase 106, Aspartate Amino Transf (AST/SGOT) 22, Alanine Aminotransferase (ALT/SGPT) 22, Total Bilirubin 0.7 LA 0.4 UA negative for infection drug screen>> + opiates, + amphetamines, + cocaine, + cannabinoids Last Impressions Chest X-Ray 08/10/17 0708 Signed Impressions: Service Date/Time: Thursday, August 10, 2017 08:52 - CONCLUSION: Normal examination. Daisha Kelley MD Patient has refused MRI. She has no objective findings of infection or sepsis today. She does not meet any SIRS/septic criteria. I will discharge her AMA. Sepsis Criteria SIRS Criteria (2 or more): Heart rate over 90 Diagnosis Primary Impression: Myalgia Scripts No Active Prescriptions or Reported Meds Disposition: 07 AGAINST MEDICAL ADVICE Delmi Vernon MD Aug 10, 2017 08:05
[2017-08-10 08:21] VITALS: O2SAT 96
[2017-08-10 08:36] LABS: BASOPHIL % 0.5 % (0.0-2.0); EOSINOPHIL % 0.5 % (0.0-4.0); HEMATOCRIT 35.8 % (35.0-46.0); HEMOGLOBIN 12.3 GM/DL (11.6-15.3); LYMPH % 14.2 % (9.0-44.0); LYMPHOCYTE # 0.9 TH/MM3 (1.0-4.8); MEAN CELL VOLUME 74.7 FL (80.0-100.0); MEAN CORPUSCULAR HEMOGLOBIN 25.6 PG (27.0-34.0); MEAN CORPUSCULAR HGB CONC 34.2 % (32.0-36.0); MEAN PLATELET VOLUME 6.9 FL (7.0-11.0); MONO % 6.3 % (0.0-8.0); MONOCYTE # 0.4 TH/MM3 (0-0.9); NEUT % 78.5 % (16.0-70.0); PLATELET COUNT 259 TH/MM3 (150-450); RED BLOOD COUNT 4.79 MIL/MM3 (4.00-5.30); RED CELL DISTRIBUTION WIDTH 14.3 % (11.6-17.2); WHITE BLOOD COUNT 6.3 TH/MM3 (4.0-11.0)
[2017-08-10 08:37] LABS: BLOOD, URINE NEG (NEG); CALCIUM OXALATE CRYSTALS,URINE MANY /hpf; GLUCOSE,URINE NEG (NEG); KETONE, URINE NEG (NEG); MUCUS URINE MOD /lpf (OCC); NITRITE,URINE NEG (NEG); SQUAMOUS EPITHELIAL CELL URINE 11 /hpf (0-5); URINE COLOR YELLOW (YELLW/STRAW); URINE LEUKOCYTE ESTERASE SMALL (NEG)
[2017-08-10 08:46] LABS: BILIRUBIN, URINE NEG (NEG)
[2017-08-10 08:49] LABS: ALBUMIN 3.6 GM/DL (3.4-5.0); ALT (GPT) 22 U/L (10-53); AST (GOT) 22 U/L (15-37); BLOOD UREA NITROGEN 14 MG/DL (7-18); CHLORIDE 102 MEQ/L (98-107); CREATININE 0.84 MG/DL (0.50-1.00); GLOMERULAR FILTRATION RATE 80 ML/MIN (>89); GLUCOSE,RANDOM 95 MG/DL (74-106); SODIUM (NA) 137 MEQ/L (136-145)
[2017-08-10 08:51] LABS: ALKALINE PHOSPHATASE 106 U/L (45-117); TOTAL BILIRUBIN ADULT 0.7 MG/DL (0.2-1.0); TOTAL PROTEIN 7.7 GM/DL (6.4-8.2)
--- NOTE | 2017-08-10 08:56 | RADRPT ---
EXAM DATE/TIME: 08/10/2017 08:52 [facility] COMPARISON: CHEST SINGLE AP, June 24, 2017, 3:59. INDICATIONS : Fever MEDICAL HISTORY : endocarditis SURGICAL HISTORY : None. ENCOUNTER: Initial ACUITY: 2 weeks PAIN SCORE: 0/10 LOCATION: chest FINDINGS: A single view of the chest demonstrates the lungs to be symmetrically aerated without evidence of mas s, infiltrate or effusion. The cardiomediastinal contours are unremarkable. Osseous structures are intact. CONCLUSION: Normal examination. Daisha Kelley MD on August 10, 2017 at 8:53 Board Certified Radiologist. This report was verified electronically.
[2017-08-10 10:58] VITALS: BP 127/71; PULSE 93; RESP 16; O2SAT 98
== END 2017-08-10 12:36 | disposition left against medical advice (07) ==
LOC: NEPE 06:29
DX: M79.1 Myalgia (principal); Z87.891 Personal history of nicotine dependence
CPT/HCPCS: 71045; 80053; 80307; 81001; 83605; 84703; 85025; 87040; 87804; 96360; 96361; 99284; J7030

== ENCOUNTER 2017-09-14 03:05 | Emergency (ER) | payer SELFPAY ==
[~2017-09-14] VITALS: Ht 182.9 cm; Wt 95.0 kg
[2017-09-14 03:08] VITALS: BP 139/72; PULSE 100; RESP 18; TEMP 97.8; O2SAT 100
[2017-09-14] MEDS ORDERED: SODIUM CHLOR 0.9% 1000 ML INJ 1,000 ML IV ONE ×2 (04:04→07:00)
[2017-09-14] MEDS ORDERED: SODIUM CHLOR 0.9% 1000 ML INJ 800 ML IV ONE (04:04)
[2017-09-14] MEDS ORDERED: cefTRIAXone INJ 2,000 MG in SODIUM CHLORIDE 0.9% INJ 100 ML IV ONE (04:15)
[2017-09-14] MEDS ORDERED: VANCOMYCIN INJ 1,000 MG in SODIUM CHLOR 0.9% 250 ML INJ 250 ML IV ONE (04:15)
--- NOTE | 2017-09-14 04:16 | PD ---
HPI Chief Complaint: Skin Problem Time Seen by Provider: 04:01 Travel History International Travel<30 days: No Contact w/Intl Traveler<30days: No Traveled to known affect area: No History of Present Illness HPI 32-year-old female with history of IVDU here for evaluation of left lower extremity infection and back pain. The patient reports that she believes she may have had a spider bite on her left anterior leg 2 days ago. The area has since increased in size and is draining purulent drainage. She also endorses mid back pain and having difficulty with urinating. She believes she may have a fever. Pain is moderate, constant, worse with movement and palpation. No paresthesias or motor deficits. PFSH Past Medical History Hx Anticoagulant Therapy: No Arthritis: No Asthma: Yes Blood Disorders: No Anxiety: Yes Depression: Yes Heart Rhythm Problems: No Cancer: No Cardiovascular Problems: Yes (endocarditits) High Cholesterol: No Chemotherapy: No Chest Pain: No Congestive Heart Failure: No Cirrhosis: Yes (DRUG INDUCED) COPD: No Cerebrovascular Accident: No Diabetes: No Diminished Hearing: No Endocrine: Yes Gastrointestinal Disorders: Yes (HEMORRHOIDS ) GERD: No Genitourinary: Yes (UTI) Headaches: Yes Hiatal Hernia: No Immune Disorder: No Implanted Vascular Access Dvce: No Kidney Stones: Yes Musculoskeletal: Yes (CHRONIC BACK PAIN) Neurologic: Yes (RIGHT CARPAL TUNNEL,SEIZURE) Reproductive: No Immunizations Current: Yes Migraines: Yes Renal Failure: No Seizures: Yes Sleep Apnea: No Thyroid Disease: No Ulcer: No Tetanus Vaccination: Never Vaccinated Influenza Vaccination: No PNEUMOCCOCAL Vaccine (Year): 2 ?: Unknown LMP: 06/04/17 : 5 Para: 3 Miscarriage: 2 Past Surgical History Abdominal Surgery: No Cardiac Surgery: No Cholecystectomy: Yes (2009) Ear Surgery: No Endocrine Surgery: No Eye Surgery: No Genitourinary Surgery: No Hysterectomy: No Oral Surgery: No Thoracic Surgery: No Social History Alcohol Use: No Tobacco Use: Yes (1PPD) Substance Use: No (Heroin (last done in jun 2017 per patient)) Allergies-Medications (Allergen,Severity, Reaction): Coded Allergies: acetaminophen (Unverified Allergy, Severe, SWELLING,HIVES, 09/14/17) ketorolac (Unverified Allergy, Severe, 09/14/17) propoxyphene (Unverified Allergy, Severe, SWELLING,HIVES, 09/14/17) tetanus immune globulin (Unverified Allergy, Severe, SICK, FEVER, 09/14/17) tetanus toxoid, adsorbed (Unverified Allergy, Severe, SWELLING,HIVES, ) tramadol (Unverified Allergy, Severe, Anaphylaxis, 09/14/17) latex (Unverified Allergy, Intermediate, SWELLING, 09/14/17) Has an allergy to latex tape penicillin G (Unverified Allergy, Intermediate, rash, 09/14/17) lorazepam (Verified Adverse Reaction, Severe, 09/14/17) pt states "I wiged out on everyone and I can't remember anything that happened" Reported Meds & Prescriptions Reported Meds & Active Scripts Active No Active Prescriptions or Reported Medications Review of Systems Except as stated in HPI: all other systems reviewed are Neg Physical Exam Narrative GENERAL: Well-developed, well-nourished, no apparent distress. SKIN: Left anterior leg with large area of cellulitis with a central open wound that is draining some purulence, no crepitus, no red streaks. Track ely in bilateral upper extremities. No splinter hemorrhages, Osler nodes, or Janeway lesions. HEAD: Atraumatic. Normocephalic. EYES: Pupils equal and round. No scleral icterus. No injection or drainage. ENT: Mucous membranes pink and moist. NECK: Trachea midline. No JVD. CARDIOVASCULAR: Regular rate and rhythm. No murmur appreciated. RESPIRATORY: No accessory muscle use. Clear to auscultation. Breath sounds equal bilaterally. GASTROINTESTINAL: Abdomen soft, non-tender, nondistended. Hepatic and splenic margins not palpable. MUSCULOSKELETAL: No obvious deformities. No clubbing. No cyanosis. No edema. Skin exam as above. All compartments and left lower extremity are supple. There is moderate midline thoracic spine and lumbar spine tenderness without step-off. NEUROLOGICAL: Awake and alert. No obvious cranial nerve deficits. Motor grossly within normal limits. Normal speech. Normal muscle strength in all 4 extremities. PSYCHIATRIC: Appropriate mood and affect; insight and judgment normal. Data Data Last Documented VS Vital Signs Date Time Temp Pulse Resp B/P (MAP) Pulse Ox O2 Delivery O2 Flow Rate FiO2 09/14/17 06:31 78 16 96/51 (66) 100 Room Air 09/14/17 03:08 97.8 Orders Orders Sepsis Workup Initiated (09/14/17 ) Complete Blood Count With Diff (09/14/17 04:04) Comprehensive Metabolic Panel (09/14/17 04:04) Lactic Acid Sepsis Protocol (09/14/17 04:04) Urinalysis - C+S If Indicated (09/14/17 04:04) Blood Culture (09/14/17 04:04) Ecg Monitoring (09/14/17 04:04) Iv Access Insert/Monitor (09/14/17 04:04) Oximetry (09/14/17 04:04) Sodium Chlor 0.9% 1000 Ml Inj (Ns 1000 M (09/14/17 04:04) Sodium Chlor 0.9% 1000 Ml Inj (Ns 1000 M (09/14/17 04:04) Tibia/Fibula (Ap/Lat) (09/14/17 ) Beta Hcg (Quant/Titer) (09/14/17 04:04) Westergren Sedimentation Rate (09/14/17 04:04) C-Reactive Protein (Crp) (09/14/17 04:04) Mri C Spine W&W/O Contrast (09/14/17 ) Mri L Spine W&W/O Contrast (09/14/17 ) Mri T Spine W & W/O Contrast (09/14/17 ) Vancomycin Inj (Vancomycin Inj) (09/14/17 04:15) Ceftriaxone Inj (Rocephin Inj) (09/14/17 04:15) Wound Culture And Gram Stain (09/14/17 04:15) Lorazepam Inj (Ativan Inj) (09/14/17 05:15) Urine Culture (09/14/17 05:00) Gadodiamide Pf Inj (Omniscan Pf Inj) (09/14/17 05:52) Sodium Chlor 0.9% 1000 Ml Inj (Ns 1000 M (09/14/17 07:00) Labs Laboratory Tests Test 09/14/17 04:00 09/14/17 04:20 09/14/17 05:00 White Blood Count 7.1 TH/MM3 Red Blood Count 4.96 MIL/MM3 Hemoglobin 12.4 GM/DL Hematocrit 37.1 % Mean Corpuscular Volume 74.8 FL Mean Corpuscular Hemoglobin 25.0 PG Mean Corpuscular Hemoglobin Concent 33.5 % Red Cell Distribution Width 14.4 % Platelet Count 320 TH/MM3 Mean Platelet Volume 6.6 FL Neutrophils (%) (Auto) 64.0 % Lymphocytes (%) (Auto) 28.0 % Monocytes (%) (Auto) 5.2 % Eosinophils (%) (Auto) 2.1 % Basophils (%) (Auto) 0.7 % Neutrophils # (Auto) 4.5 TH/MM3 Lymphocytes # (Auto) 2.0 TH/MM3 Monocytes # (Auto) 0.4 TH/MM3 Eosinophils # (Auto) 0.1 TH/MM3 Basophils # (Auto) 0.1 TH/MM3 CBC Comment DIFF FINAL Differential Comment Erythrocyte Sedimentation Rate 23 mm/hr Blood Urea Nitrogen 16 MG/DL Creatinine 0.94 MG/DL Random Glucose 99 MG/DL Total Protein 7.7 GM/DL Albumin 3.5 GM/DL Calcium Level 8.9 MG/DL Alkaline Phosphatase 108 U/L Aspartate Amino Transf (AST/SGOT) 15 U/L Alanine Aminotransferase (ALT/SGPT) 20 U/L Total Bilirubin 0.5 MG/DL Sodium Level 137 MEQ/L Potassium Level 3.3 MEQ/L Chloride Level 101 MEQ/L Carbon Dioxide Level 29.1 MEQ/L Anion Gap 7 MEQ/L Estimat Glomerular Filtration Rate 69 ML/MIN C-Reactive Protein 1.96 MG/DL Human Chorionic Gonadotropin, Quant LESS THAN 1 MIU/ML Lactic Acid Level 1.2 mmol/L Urine Color YELLOW Urine Turbidity CLEAR Urine pH 6.0 Urine Specific [place] 1.019 Urine Protein 30 mg/dL Urine Glucose (UA) NEG mg/dL Urine Ketones NEG mg/dL Urine Occult Blood NEG Urine Nitrite NEG Urine Bilirubin NEG Urine Urobilinogen LESS THAN 2.0 MG/DL Urine Leukocyte Esterase MOD Urine RBC 1 /hpf Urine WBC 5 /hpf Urine Squamous Epithelial Cells 2 /hpf Urine Bacteria RARE /hpf Urine Hyaline Casts 1 /lpf Urine Mucus FEW /lpf Microscopic Urinalysis Comment CATH-CULTURE IND MDM Medical Decision Making Medical Screen Exam Complete: Yes Emergency Medical Condition: Yes Differential Diagnosis Sepsis, cellulitis, osteomyelitis, epidural abscess Narrative Course Initial vital signs show heart rate 100, blood pressure 139/72, pulse ox 100% on room air, oral temperature 97.8F. The patient was empirically given vancomycin and Rocephin for left leg cellulitis and possible osteomyelitis/epidural abscess. CBC: WBC 7.1, hemoglobin 12.4, hematocrit 37.1, platelets 320. CMP is remarkable for potassium 3.3, otherwise unremarkable. CRP is 1.96. ESR is 23. UA shows 30 protein, moderate leukocyte esterase, rare bacteria, few mucus. Left tib-fib x-ray reviewed by me and shows no free air and read as osseous structures of the leg are radiographically intact by the radiologist. MRI thoracic spine read as negative MRI of the thoracic spine with and without contrast. At approximately 7:00 AM at the end of my shift the patient was signed out to Dr. Beard to follow-up with MRI T-spine and L-spine and formulate a disposition. Scripts No Active Prescriptions or Reported Meds Manuel Morales MD Sep 14, 2017 04:16
[2017-09-14 04:28] VITALS: BP 122/66; PULSE 88; RESP 18; O2SAT 99
[2017-09-14 04:51] LABS: AUTOMATED NEUTROPHIL # 4.5 TH/MM3 (1.8-7.7); BASOPHIL # 0.1 TH/MM3 (0-0.2); BASOPHIL % 0.7 % (0.0-2.0); EOSINOPHIL # 0.1 TH/MM3 (0-0.4); EOSINOPHIL % 2.1 % (0.0-4.0); HEMATOCRIT 37.1 % (35.0-46.0); HEMOGLOBIN 12.4 GM/DL (11.6-15.3); MEAN CELL VOLUME 74.8 FL (80.0-100.0); MEAN CORPUSCULAR HGB CONC 33.5 % (32.0-36.0); MEAN PLATELET VOLUME 6.6 FL (7.0-11.0); MONO % 5.2 % (0.0-8.0); MONOCYTE # 0.4 TH/MM3 (0-0.9); PLATELET COUNT 320 TH/MM3 (150-450); RED BLOOD COUNT 4.96 MIL/MM3 (4.00-5.30); RED CELL DISTRIBUTION WIDTH 14.4 % (11.6-17.2); WHITE BLOOD COUNT 7.1 TH/MM3 (4.0-11.0)
--- NOTE | 2017-09-14 04:59 | RADRPT ---
EXAM DATE/TIME: 09/14/2017 04:17 [facility] COMPARISON: No previous studies available for comparison. INDICATIONS : Insect bite to anterior left lower leg. MEDICAL HISTORY : Endocarditis SURGICAL HISTORY : None. ENCOUNTER: Initial ACUITY: 1 week PAIN SCORE: 7/10 LOCATION: Left Tib-fib FINDINGS: Two view examination of the left tibia demonstrates no evidence of fracture or dislocation. No evide nce of periosteal reaction or focal bony destruction. Bony mineralization is normal. The soft tissue structures are intact. CONCLUSION: The osseous structures of the leg are radiographically intact. Anuj London MD on September 14, 2017 at 4:57 Board Certified Radiologist. This report was verified electronically.
[2017-09-14 05:05] LABS: ALBUMIN 3.5 GM/DL (3.4-5.0); ALT (GPT) 20 U/L (10-53); AST (GOT) 15 U/L (15-37); BICARBONATE 29.1 MEQ/L (21.0-32.0); BLOOD UREA NITROGEN 16 MG/DL (7-18); C-REACTIVE PROTEIN 1.96 MG/DL (0.00-0.30); CALCIUM 8.9 MG/DL (8.5-10.1); CHLORIDE 101 MEQ/L (98-107); CREATININE 0.94 MG/DL (0.50-1.00); GLOMERULAR FILTRATION RATE 69 ML/MIN (>89); GLUCOSE,RANDOM 99 MG/DL (74-106); SODIUM (NA) 137 MEQ/L (136-145)
[2017-09-14 05:09] LABS: ALKALINE PHOSPHATASE 108 U/L (45-117); TOTAL BILIRUBIN ADULT 0.5 MG/DL (0.2-1.0); TOTAL PROTEIN 7.7 GM/DL (6.4-8.2)
[2017-09-14] MEDS ORDERED: LORazepam 2 MG/ML VIAL IV PUSH ONE (05:15)
[2017-09-14 05:35] LABS: BACTERIA, URINE RARE /hpf; BILIRUBIN, URINE NEG (NEG); BLOOD, URINE NEG (NEG); GLUCOSE,URINE NEG (NEG); HYALINE CAST, URINE 1 /lpf (RARE); KETONE, URINE NEG (NEG); MUCUS URINE FEW /lpf (OCC); NITRITE,URINE NEG (NEG); SQUAMOUS EPITHELIAL CELL URINE 2 /hpf (0-5); URINE COLOR YELLOW (YELLW/STRAW); URINE LEUKOCYTE ESTERASE MOD (NEG)
[2017-09-14] MEDS ORDERED: GADODIAMIDE PF 287 MG/ML 5 ML VIAL (for RAD MRI) IV PUSH ONE (05:52)
--- NOTE | 2017-09-14 06:18 | RADRPT ---
EXAM DATE/TIME: 09/14/2017 05:16 [facility] COMPARISON: No previous studies available for comparison. INDICATIONS : Osteomyelitis. CONTRAST: 19 cc Omniscan (gadodiamide) IV MEDICAL HISTORY : Seizures. Endocarditis. SURGICAL HISTORY : Cholecystectomy. Liver stent. ENCOUNTER: Initial ACUITY: 1 day PAIN SCORE: 8/10 LOCATION: Thoracic pain. TECHNIQUE: Multiplanar multisequence MRI of the thoracic spine was performed. FINDINGS: VERTEBRA: Normal vertebral body height. Homogeneous marrow signal. ALIGNMENT: Normal. CORD: Normal position and configuration. POST CONTRAST: No abnormal areas of contrast enhancement seen. T1-T2: Normal. T2-T3: The thecal sac has a normal diameter. No evidence of disc bulge or protrusion. T3-T4: The thecal sac has a normal diameter. No evidence of disc bulge or protrusion. T4-T5: The thecal sac has a normal diameter. No evidence of disc bulge or protrusion. T5-T6: The thecal sac has a normal diameter. No evidence of disc bulge or protrusion. T6-T7: The thecal sac has a normal diameter. No evidence of disc bulge or protrusion. T7-T8: The thecal sac has a normal diameter. No evidence of disc bulge or protrusion. T8-T9: The thecal sac has a normal diameter. No evidence of disc bulge or protrusion. T9-T10: The thecal sac has a normal diameter. No evidence of disc bulge or protrusion. T10-T11: The thecal sac has a normal diameter. No evidence of disc bulge or protrusion. T11-T12: The thecal sac has a normal diameter. No evidence of disc bulge or protrusion. T12-L1: The thecal sac has a normal diameter. No evidence of disc bulge or protrusion. CONCLUSION: 1. Negative MRI of the thoracic spine with and without contrast. Anuj London MD on September 14, 2017 at 6:15 Board Certified Radiologist. This report was verified electronically.
[2017-09-14 06:31] VITALS: BP 96/51; PULSE 78; RESP 16; O2SAT 100
--- NOTE | 2017-09-14 06:50 | RADRPT ---
EXAM DATE/TIME: 09/14/2017 05:16 [facility] COMPARISON: No previous studies available for comparison. INDICATIONS : Osteomyelitis. CONTRAST: 19 cc Omniscan (gadodiamide) IV MEDICAL HISTORY : Seizures. Endocarditis. SURGICAL HISTORY : Cholecystectomy. Liver stent. ENCOUNTER: Initial ACUITY: 1 day PAIN SCORE: 8/10 LOCATION: Lower back. TECHNIQUE: Multiplanar multisequence MRI of the lumbar spine was performed with and without contrast. FINDINGS: The most caudal appearing lumbar vertebra is numbered as L5. VERTEBRAE: Homogeneous signal. Normal alignment. CONUS: Normal level and configuration. POST CONTRAST: No abnormal areas of contrast enhancement are seen. T12-L1: The thecal sac has a normal diameter. No evidence of disc bulge or protrusion. The neural foramina are patent bilaterally. L1-L2: The thecal sac has a normal diameter. No evidence of disc bulge or protrusion. The neural foramina are patent bilaterally. L2-L3: The thecal sac has a normal diameter. No evidence of disc bulge or protrusion. The neural foramina are patent bilaterally. L3-L4: Mild bulging of the disc causes flattening of ventral margin of the thecal sac. There is a high inte nsity zone signal the central inferior annulus suggesting associated with a tear. L4-L5: The thecal sac has a normal diameter. No evidence of disc bulge or protrusion. The neural foramina are patent bilaterally. L5-S1: There is a large central protrusion of the disc which measures 7 mm in AP dimension. This is located between the exiting nerve root sleeves and is contained within the epidural fat. There is no deform ity of the thecal sac. No lateral extension. CONCLUSION: 1. No signal abnormalities in the lumbar vertebral body marrow to suggest osteomyelitis. 2. Large central disc protrusion at L5-S1 is contained within the epidural fat and without deviation of the nerve roots or deformity of the thecal sac. Anuj London MD on September 14, 2017 at 6:46 Board Certified Radiologist. This report was verified electronically.
--- NOTE | 2017-09-14 06:52 | RADRPT ---
EXAM DATE/TIME: 09/14/2017 05:16 [facility] COMPARISON: No previous studies available for comparison. INDICATIONS : Osteomyelitis. CONTRAST: 19 cc Omniscan (gadodiamide) IV MEDICAL HISTORY : Seizures. Endocarditis. SURGICAL HISTORY : Cholecystectomy. Liver stent. ENCOUNTER: Initial ACUITY: 1 day PAIN SCORE: 8/10 LOCATION: neck TECHNIQUE: Multiplanar, multisequence MRI examination of the cervical spine was performed. FINDINGS: VERTEBRAE: Normal vertebral body height. Homogeneous marrow signal. ALIGNMENT: No evidence of subluxation. CORD: Normal configuration and signal. POST FOSSA: The cerebellar tonsils are normal in position. POST-CONTRAST: No abnormal areas of enhancement are seen. C2-C3: The thecal sac has a normal configuration. There is no evidence of disc herniation or spinal canal stenosis. The neural foramina are patent bilaterally. C3-C4: The thecal sac has a normal configuration. There is no evidence of disc herniation or spinal canal s tenosis. The neural foramina are patent bilaterally. C4-C5: The thecal sac has a normal configuration. There is no evidence of disc herniation or spinal canal s tenosis. The neural foramina are patent bilaterally. C5-C6: The thecal sac has a normal configuration. There is no evidence of disc herniation or spinal canal s tenosis. The neural foramina are patent bilaterally. C6-C7: The thecal sac has a normal configuration. There is no evidence of disc herniation or spinal canal s tenosis. The neural foramina are patent bilaterally. C7-T1: The thecal sac has a normal configuration. There is no evidence of disc herniation or spinal canal s tenosis. The neural foramina are patent bilaterally. CONCLUSION: 1. Negative MRI of the cervical spine with and without contrast. Anuj London MD on September 14, 2017 at 6:49 Board Certified Radiologist. This report was verified electronically.
[2017-09-14 08:22] VITALS: BP 99/55; PULSE 88; RESP 14; O2SAT 99
--- NOTE | 2017-09-14 09:01 | PD ---
Physical Exam Narrative Receive sign out from previous team to follow up MRI results and reevaluate. 32yo F with history of IVDA here with left leg cellulitis and complaint of back pain. Labs reviewed, no leukocytosis. H/H normal. ESR mildly elevated at 23. Lactic acid normal at 1.2. C-reactive protein at 1.96. UA showed moderate leukocyte. Rare bacteria. WBC 5. Xray left tib/fib showed osseous structures of leg are radiographically intact. MRI TS negative. MRI LS showed no signal abnormality to suggest osteomyelitis. Large central disc protrusion L5-S1 in epidural fat without deviation of nerve roots or deformity of thecal sac. MRI C spine negative. Pt given NS IVF x3, vancomycin and ceftriaxone. BP 99/55. Upon review of pt's record, her BP has always been in the lower side with systolic in the 100s. BP is now 114/71 which is her baseline. Pt is nontoxic appearing, had an extensive work up, feels better and wants to go home. Pt has cellulitis of left leg that is localized with no fluctuance and normal WBC and normal lactic acid. MRIs negative. I initially ordered dalvance. However, pharmacy said since she got vancomycin this morning, she wont be able to receive dalvance until 4pm. I discussed with patient and she said she would be compliant with bactrim. Strict return precautions given. Data Data Last Documented VS Vital Signs Date Time Temp Pulse Resp B/P (MAP) Pulse Ox O2 Delivery O2 Flow Rate FiO2 09/14/17 10:09 92 17 114/71 (85) 100 Room Air 09/14/17 03:08 97.8 Orders Orders Sepsis Workup Initiated (09/14/17 ) Complete Blood Count With Diff (09/14/17 04:04) Comprehensive Metabolic Panel (09/14/17 04:04) Lactic Acid Sepsis Protocol (09/14/17 04:04) Urinalysis - C+S If Indicated (09/14/17 04:04) Blood Culture (09/14/17 04:04) Ecg Monitoring (09/14/17 04:04) Iv Access Insert/Monitor (09/14/17 04:04) Oximetry (09/14/17 04:04) Sodium Chlor 0.9% 1000 Ml Inj (Ns 1000 M (09/14/17 04:04) Sodium Chlor 0.9% 1000 Ml Inj (Ns 1000 M (09/14/17 04:04) Tibia/Fibula (Ap/Lat) (09/14/17 ) Beta Hcg (Quant/Titer) (09/14/17 04:04) Westergren Sedimentation Rate (09/14/17 04:04) C-Reactive Protein (Crp) (09/14/17 04:04) Mri C Spine W&W/O Contrast (09/14/17 ) Mri L Spine W&W/O Contrast (09/14/17 ) Mri T Spine W & W/O Contrast (09/14/17 ) Vancomycin Inj (Vancomycin Inj) (09/14/17 04:15) Ceftriaxone Inj (Rocephin Inj) (09/14/17 04:15) Wound Culture And Gram Stain (09/14/17 04:15) Lorazepam Inj (Ativan Inj) (09/14/17 05:15) Urine Culture (09/14/17 05:00) Gadodiamide Pf Inj (Omniscan Pf Inj) (09/14/17 05:52) Sodium Chlor 0.9% 1000 Ml Inj (Ns 1000 M (09/14/17 07:00) Case Management Consult (09/14/17 ) Asp:No Reaction To [facility]/Vanc (Asp Crit (09/14/17 09:45) Asp: Does Not Meet Inpt Admit (Asp Crit: (09/14/17 09:45) Asp: Iv Antibiotics Admit Only (Asp Crit (09/14/17 09:45) Asp: Location Of [facility] Admin (Asp Crit: (09/14/17 09:45) [facility] Information ([facility] (09/14/17 09:45) Dalbavancin Inj (Dalvance Inj) (09/14/17 09:35) [facility]ancin Inj (Dalvance Inj) (09/14/17 16:00) Labs Laboratory Tests Test 09/14/17 04:00 09/14/17 04:20 09/14/17 05:00 White Blood Count 7.1 TH/MM3 Red Blood Count 4.96 MIL/MM3 Hemoglobin 12.4 GM/DL Hematocrit 37.1 % Mean Corpuscular Volume 74.8 FL Mean Corpuscular Hemoglobin 25.0 PG Mean Corpuscular Hemoglobin Concent 33.5 % Red Cell Distribution Width 14.4 % Platelet Count 320 TH/MM3 Mean Platelet Volume 6.6 FL Neutrophils (%) (Auto) 64.0 % Lymphocytes (%) (Auto) 28.0 % Monocytes (%) (Auto) 5.2 % Eosinophils (%) (Auto) 2.1 % Basophils (%) (Auto) 0.7 % Neutrophils # (Auto) 4.5 TH/MM3 Lymphocytes # (Auto) 2.0 TH/MM3 Monocytes # (Auto) 0.4 TH/MM3 Eosinophils # (Auto) 0.1 TH/MM3 Basophils # (Auto) 0.1 TH/MM3 CBC Comment DIFF FINAL Differential Comment Erythrocyte Sedimentation Rate 23 mm/hr Blood Urea Nitrogen 16 MG/DL Creatinine 0.94 MG/DL Random Glucose 99 MG/DL Total Protein 7.7 GM/DL Albumin 3.5 GM/DL Calcium Level 8.9 MG/DL Alkaline Phosphatase 108 U/L Aspartate Amino Transf (AST/SGOT) 15 U/L Alanine Aminotransferase (ALT/SGPT) 20 U/L Total Bilirubin 0.5 MG/DL Sodium Level 137 MEQ/L Potassium Level 3.3 MEQ/L Chloride Level 101 MEQ/L Carbon Dioxide Level 29.1 MEQ/L Anion Gap 7 MEQ/L Estimat Glomerular Filtration Rate 69 ML/MIN C-Reactive Protein 1.96 MG/DL Human Chorionic Gonadotropin, Quant LESS THAN 1 MIU/ML Lactic Acid Level 1.2 mmol/L Urine Color YELLOW Urine Turbidity CLEAR Urine pH 6.0 Urine Specific [place] 1.019 Urine Protein 30 mg/dL Urine Glucose (UA) NEG mg/dL Urine Ketones NEG mg/dL Urine Occult Blood NEG Urine Nitrite NEG Urine Bilirubin NEG Urine Urobilinogen LESS THAN 2.0 MG/DL Urine Leukocyte Esterase MOD Urine RBC 1 /hpf Urine WBC 5 /hpf Urine Squamous Epithelial Cells 2 /hpf Urine Bacteria RARE /hpf Urine Hyaline Casts 1 /lpf Urine Mucus FEW /lpf Microscopic Urinalysis Comment CATH-CULTURE IND MDM Supervised Visit with MICHAEL: No Diagnosis Primary Impression: Cellulitis Qualified Codes: L03.116 - Cellulitis of left lower limb Patient Instructions: General Instructions Departure Forms: Tests/Procedures Additional Instruction: Please follow up with [facility] in 2-3 days. Return to the ED if symptoms worsen. Med/Other Pt SpecificInfo: Prescription(s) given, No Change to Meds Scripts Sulfamethoxazole-Trimethoprim (Bactrim DS) 800-160 Mg Tab 1 TAB PO BID for Infection, #20 TAB 0 Refills Prov: Chery Beard DO 09/14/17 Disposition: 01 DISCHARGE HOME Condition: Stable Chery Beard DO Sep 14, 2017 09:01
[2017-09-14] MEDS ORDERED: DALBAVANCIN INJ 1,500 MG in DEXTROSE 5% IN WATE 500 ML INJ 500 ML IV STA ×2 (09:35)
[2017-09-14] MEDS ORDERED: ASP: Does not meet inpatient admission criteria OTHER ONE (09:45)
[2017-09-14] MEDS ORDERED: ASP: Only reason for admit - IV antibiotics OTHER ONE (09:45)
[2017-09-14] MEDS ORDERED: ASP: No known hypersensitivity to Vanco, Telavancin, Dalbavancin OTHER ONE (09:45)
[2017-09-14] MEDS ORDERED: MISCELLANEOUS PHARMACY INFORMATION XX ONE (09:45)
[2017-09-14] MEDS ORDERED: ASP: Location of Dalbavancin administration OTHER ONE (09:45)
[2017-09-14 10:09] VITALS: BP 114/71; PULSE 92; RESP 17; O2SAT 100
[2017-09-14] MEDS ORDERED: BACT800T5 PO (10:17)
[2017-09-14] MEDS ORDERED: DALBAVANCIN INJ 1,500 MG in DEXTROSE 5% IN WATE 500 ML INJ 500 ML IV ONE ×2 (16:00)
== END 2017-09-14 12:09 | disposition home or self-care (01) ==
LOC: NEPD 03:05 → NEPC 12:09
DX: L03.116 Cellulitis of left lower limb (principal); F17.200 Nicotine dependence, unspecified, uncomplicated; M54.9 Dorsalgia, unspecified
CPT/HCPCS: 72156; 72157; 72158; 73590; 80053; 81001; 83605; 84702; 85025; 85652; 86140; 86403; 87040; 87070; 87086; 87186; 96361; 96365; 96366; 96367; 96375; 99285; A9579; J0696; J2060; J3370; J7030; J7050

== ENCOUNTER 2017-10-23 04:20 | Observation (INO) | payer SELFPAY ==
[2017-10-23] VITALS (10 sets, daily range): BP systolic 115–134; BP diastolic 57–83; PULSE 89–109; RESP 16–20; TEMP 97.6–102; O2SAT 96–99
[~2017-10-23] VITALS: Ht 182.9 cm; Wt 95.0 kg
[~2017-10-23 04:20] MED LIST changes: +BACT800T5 PO; -HYDR-3533 PO; -MEDR4PAK PO
[2017-10-23] MEDS ORDERED: SODIUM CHLOR 0.9% 1000 ML INJ 1,000 ML IV ONE (04:30)
[2017-10-23] MEDS ORDERED: ACETAMINOPHEN 325 MG TAB PO ONE (04:30)
[2017-10-23] MEDS ORDERED: SODIUM CHLOR 0.9% 1000 ML INJ 800 ML IV ONE (04:30)
[2017-10-23] MEDS ORDERED: HYDROmorphone HCL PF 2 MG/ML VIAL IV PUSH ONE (04:30)
--- NOTE | 2017-10-23 04:35 | PD ---
HPI Chief Complaint: Flank/Kidney Pain Time Seen by Provider: 04:27 Travel History International Travel<30 days: No Contact w/Intl Traveler<30days: No Traveled to known affect area: No History of Present Illness HPI 32-year-old female with history of IV drug abuse, septic arthritis in the lumbar spine, brought in by ambulance for evaluation of fever, back pain, and flank pain. Patient reports his symptoms started this evening. Back pain is severe, constant, worse with movements. She is having some dysuria. She tells me she has not used IV drugs in over a month. PFSH Past Medical History Hx Anticoagulant Therapy: No Arthritis: No Asthma: Yes Blood Disorders: No Anxiety: Yes Depression: Yes Heart Rhythm Problems: No Cancer: No Cardiovascular Problems: Yes (endocarditits) High Cholesterol: No Chemotherapy: No Chest Pain: No Congestive Heart Failure: No Cirrhosis: Yes (DRUG INDUCED) COPD: No Cerebrovascular Accident: No Diabetes: No Diminished Hearing: No Endocrine: Yes Gastrointestinal Disorders: Yes (HEMORRHOIDS ) GERD: No Genitourinary: Yes (UTI) Headaches: Yes Hiatal Hernia: No Immune Disorder: No Implanted Vascular Access Dvce: No Kidney Stones: Yes Musculoskeletal: Yes (CHRONIC BACK PAIN) Neurologic: Yes (RIGHT CARPAL TUNNEL,SEIZURE) Reproductive: No Immunizations Current: Yes Migraines: Yes Renal Failure: No Seizures: Yes Sleep Apnea: No Thyroid Disease: No Ulcer: No PNEUMOCCOCAL Vaccine (Year): 2 ?: Unknown LMP: unknown : 5 Para: 3 Miscarriage: 2 Past Surgical History Abdominal Surgery: No Cardiac Surgery: No Cholecystectomy: Yes (2009) Ear Surgery: No Endocrine Surgery: No Eye Surgery: No Genitourinary Surgery: No Hysterectomy: No Oral Surgery: No Thoracic Surgery: No Social History Alcohol Use: No Tobacco Use: Yes (1PPD) Substance Use: No (Heroin (last done in jun 2017 per patient)) Allergies-Medications (Allergen,Severity, Reaction): Coded Allergies: acetaminophen (Unverified Allergy, Severe, SWELLING,HIVES, 09/14/17) ketorolac (Unverified Allergy, Severe, 09/14/17) propoxyphene (Unverified Allergy, Severe, SWELLING,HIVES, 09/14/17) tetanus immune globulin (Unverified Allergy, Severe, SICK, FEVER, 09/14/17) tetanus toxoid, adsorbed (Unverified Allergy, Severe, SWELLING,HIVES, ) tramadol (Unverified Allergy, Severe, Anaphylaxis, 09/14/17) latex (Unverified Allergy, Intermediate, SWELLING, 09/14/17) Has an allergy to latex tape penicillin G (Unverified Allergy, Intermediate, rash, 09/14/17) morphine (Verified Allergy, Unknown, Anaphylaxis, 10/23/17) Reported Meds & Prescriptions Reported Meds & Active Scripts Active No Active Prescriptions or Reported Medications Review of Systems Except as stated in HPI: all other systems reviewed are Neg Physical Exam Narrative GENERAL: Well-developed, well-nourished, no apparent distress. SKIN: Track ely and wounds in bilateral upper and lower extremities with mild surrounding warmth and erythema, no fluctuance or induration, no crepitus. HEAD: Atraumatic. Normocephalic. EYES: Pupils equal and round. No scleral icterus. No injection or drainage. ENT: Mucous membranes pink and moist. NECK: Trachea midline. No JVD. No nuchal rigidity. CARDIOVASCULAR: Regular rate and rhythm. RESPIRATORY: No accessory muscle use. Clear to auscultation. Breath sounds equal bilaterally. GASTROINTESTINAL: Abdomen soft, non-tender, nondistended. Hepatic and splenic margins not palpable. MUSCULOSKELETAL: Moderate midline thoracic spine and lumbar spine tenderness without step-off. Moderate bilateral CVA tenderness. NEUROLOGICAL: Awake and alert. No obvious cranial nerve deficits. Motor grossly within normal limits. Normal speech. PSYCHIATRIC: Appropriate mood and affect; insight and judgment normal. Data Data Last Documented VS Vital Signs Date Time Temp Pulse Resp B/P (MAP) Pulse Ox O2 Delivery O2 Flow Rate FiO2 10/23/17 06:45 99 16 118/57 (77) 98 Room Air 10/23/17 04:26 102.0 Orders Orders Sepsis Workup Initiated (10/23/17 ) Complete Blood Count With Diff (10/23/17 04:30) Comprehensive Metabolic Panel (10/23/17 04:30) Beta Hcg (Quant/Titer) (10/23/17 04:30) Prothrombin Time / Inr (Pt) (10/23/17 04:30) Act Partial Throm Time (Ptt) (10/23/17 04:30) Lactic Acid Sepsis Protocol (10/23/17 04:30) Urinalysis - C+S If Indicated (10/23/17 04:30) Influenzae A/B Antigen (10/23/17 04:30) Blood Culture (10/23/17 04:30) Chest, Single Ap (10/23/17 04:30) Blood Glucose (10/23/17 04:30) Ecg Monitoring (10/23/17 04:30) Iv Access Insert/Monitor (10/23/17 04:30) Oximetry (10/23/17 04:30) Oxygen Administration (10/23/17 04:30) Acetaminophen (Tylenol) (10/23/17 04:30) Sodium Chlor 0.9% 1000 Ml Inj (Ns 1000 M (10/23/17 04:30) Sodium Chlor 0.9% 1000 Ml Inj (Ns 1000 M (10/23/17 04:30) Ed Urine Pregnancytest Poc (10/23/17 04:30) Hydromorphone Pf Inj (Dilaudid Pf Inj) (10/23/17 04:30) Ct Abd/Pel W Iv Contrast(Rout) (10/23/17 ) Mri C Spine W&W/O Contrast (10/23/17 ) Mri L Spine W&W/O Contrast (10/23/17 ) Mri T Spine W & W/O Contrast (10/23/17 ) Drug Screen, Random Urine (10/23/17 04:35) Vancomycin Inj (Vancomycin Inj) (10/23/17 05:00) Ceftriaxone Inj (Rocephin Inj) (10/23/17 05:00) Iohexol 350 Inj (Omnipaque 350 Inj) (10/23/17 05:40) Labs Laboratory Tests Test 10/23/17 04:35 White Blood Count 7.0 TH/MM3 Red Blood Count 4.54 MIL/MM3 Hemoglobin 11.4 GM/DL Hematocrit 33.4 % Mean Corpuscular Volume 73.5 FL Mean Corpuscular Hemoglobin 25.1 PG Mean Corpuscular Hemoglobin Concent 34.1 % Red Cell Distribution Width 15.1 % Platelet Count 247 TH/MM3 Mean Platelet Volume 6.7 FL Neutrophils (%) (Auto) 78.9 % Lymphocytes (%) (Auto) 15.3 % Monocytes (%) (Auto) 5.2 % Eosinophils (%) (Auto) 0.1 % Basophils (%) (Auto) 0.5 % Neutrophils # (Auto) 5.5 TH/MM3 Lymphocytes # (Auto) 1.1 TH/MM3 Monocytes # (Auto) 0.4 TH/MM3 Eosinophils # (Auto) 0.0 TH/MM3 Basophils # (Auto) 0.0 TH/MM3 CBC Comment DIFF FINAL Differential Comment Blood Urea Nitrogen 7 MG/DL Creatinine 0.84 MG/DL Random Glucose 88 MG/DL Total Protein 7.1 GM/DL Albumin 3.1 GM/DL Calcium Level 8.5 MG/DL Alkaline Phosphatase 93 U/L Aspartate Amino Transf (AST/SGOT) 13 U/L Alanine Aminotransferase (ALT/SGPT) 23 U/L Total Bilirubin 0.6 MG/DL Sodium Level 137 MEQ/L Potassium Level 3.4 MEQ/L Chloride Level 104 MEQ/L Carbon Dioxide Level 26.6 MEQ/L Anion Gap 6 MEQ/L Estimat Glomerular Filtration Rate 79 ML/MIN Lactic Acid Level 0.7 mmol/L Human Chorionic Gonadotropin, Quant LESS THAN 1 MIU/ML MDM Medical Decision Making Medical Screen Exam Complete: Yes Emergency Medical Condition: Yes Medical Record Reviewed: Yes Differential Diagnosis Sepsis, bacteremia, pyelonephritis, epidural abscess/discitis/osteomyelitis Narrative Course Initial vital signs show heart rate 107, blood pressure 134/83, pulse ox 99% on room air, oral temperature 102F. The patient was empirically given 1 g of IV vancomycin and 2 g of IV Rocephin for sepsis, probable pyelonephritis, history of IVDU. CBC: WBC 7, hemoglobin 11.4, hematocrit 33.4, platelets 247, neutrophils 79%. CMP is essentially unremarkable. Beta-hCG is negative. Lactic acid is 0.7. CT abdomen pelvis: CONCLUSION: 1. No acute inflammatory process. 2. Mild splenomegaly. 3. Status post cholecystectomy. 4. Patchy opacities right lower lobe. Chest x-ray: CONCLUSION: Minimal right lung density. At approximately 7 Am at the end of my shift the patient was signed out to Dr Hughes to follow up with MRIs and disposition. Scripts No Active Prescriptions or Reported Meds Manuel Morales MD Oct 23, 2017 04:35
[2017-10-23] MEDS ORDERED: cefTRIAXone INJ 2,000 MG in SODIUM CHLORIDE 0.9% INJ 100 ML IV ONE (05:00)
[2017-10-23] MEDS ORDERED: VANCOMYCIN INJ 1,000 MG in SODIUM CHLOR 0.9% 250 ML INJ 250 ML IV ONE (05:00)
[2017-10-23 05:08] LABS: AUTOMATED NEUTROPHIL # 5.5 TH/MM3 (1.8-7.7); BASOPHIL % 0.5 % (0.0-2.0); EOSINOPHIL % 0.1 % (0.0-4.0); HEMATOCRIT 33.4 % (35.0-46.0); HEMOGLOBIN 11.4 GM/DL (11.6-15.3); LYMPH % 15.3 % (9.0-44.0); LYMPHOCYTE # 1.1 TH/MM3 (1.0-4.8); MEAN CELL VOLUME 73.5 FL (80.0-100.0); MEAN CORPUSCULAR HEMOGLOBIN 25.1 PG (27.0-34.0); MEAN CORPUSCULAR HGB CONC 34.1 % (32.0-36.0); MEAN PLATELET VOLUME 6.7 FL (7.0-11.0); MONO % 5.2 % (0.0-8.0); MONOCYTE # 0.4 TH/MM3 (0-0.9); NEUT % 78.9 % (16.0-70.0); PLATELET COUNT 247 TH/MM3 (150-450); RED BLOOD COUNT 4.54 MIL/MM3 (4.00-5.30); RED CELL DISTRIBUTION WIDTH 15.1 % (11.6-17.2)
[2017-10-23 05:33] LABS: ALBUMIN 3.1 GM/DL (3.4-5.0); AST (GOT) 13 U/L (15-37); BICARBONATE 26.6 MEQ/L (21.0-32.0); BLOOD UREA NITROGEN 7 MG/DL (7-18); CALCIUM 8.5 MG/DL (8.5-10.1); CHLORIDE 104 MEQ/L (98-107); CREATININE 0.84 MG/DL (0.50-1.00); GLOMERULAR FILTRATION RATE 79 ML/MIN (>89); GLUCOSE,RANDOM 88 MG/DL (74-106); SODIUM (NA) 137 MEQ/L (136-145)
[2017-10-23 05:34] LABS: ALT (GPT) 23 U/L (10-53)
[2017-10-23 05:38] LABS: ALKALINE PHOSPHATASE 93 U/L (45-117); TOTAL BILIRUBIN ADULT 0.6 MG/DL (0.2-1.0); TOTAL PROTEIN 7.1 GM/DL (6.4-8.2)
[2017-10-23] MEDS ORDERED: IOHEXOL 350 MG/ML 10 ML VIAL (for RAD DIAG) IVCONTRAST ONE (05:40)
--- NOTE | 2017-10-23 06:05 | RADRPT ---
EXAM DATE/TIME: 10/23/2017 05:36 [facility] COMPARISON: No previous studies available for comparison. INDICATIONS : Abdomen pain. IV CONTRAST: 80 cc Omnipaque 350 (iohexol) IV ORAL CONTRAST: No oral contrast ingested. RADIATION DOSE: 18.00 CTDIvol (mGy) MEDICAL HISTORY : Cirrhosis. IV drug use SURGICAL HISTORY : Cholecystectomy. ENCOUNTER: Initial ACUITY: 1 day PAIN SCALE: 5/10 LOCATION: Bilateral abdomen TECHNIQUE: Volumetric scanning of the abdomen and pelvis was performed. Using automated exposure control and ad justment of the mA and/or kV according to patient size, radiation dose was kept as low as reasonably achievable to obtain optimal diagnostic quality images. DICOM format image data is available electro nically for review and comparison. FINDINGS: LOWER LUNGS: Patchy opacities right lower lobe. LIVER: Homogeneous density without lesion. There is no dilation of the biliary tree. Cholecystectomy clips. SPLEEN: Mildly enlarged without lesion. PANCREAS: Within normal limits. KIDNEYS: Normal in size and shape. There is no mass, stone or hydronephrosis. ADRENAL GLANDS: Within normal limits. VASCULAR: There is no aortic aneurysm. BOWEL/MESENTERY: The stomach, small bowel, and colon demonstrate no acute abnormality. There is no free intraperitone al air or fluid. Appendix normal. ABDOMINAL WALL: Within normal limits. RETROPERITONEUM: There is no lymphadenopathy. BLADDER: No wall thickening or mass. REPRODUCTIVE: Within normal limits. INGUINAL: There is no lymphadenopathy or hernia. MUSCULOSKELETAL: Within normal limits for patient age. CONCLUSION: 1. No acute inflammatory process. 2. Mild splenomegaly. 3. Status post cholecystectomy. 4. Patchy opacities right lower lobe. Case Lema MD on October 23, 2017 at 6:01 Board Certified Radiologist. This report was verified electronically.
--- NOTE | 2017-10-23 06:11 | RADRPT ---
EXAM DATE/TIME: 10/23/2017 04:46 [facility] COMPARISON: CHEST SINGLE AP, August 10, 2017, 8:52. INDICATIONS : Fever. MEDICAL HISTORY : Seizures Endocarditis IV Drug use SURGICAL HISTORY : Cholecystectomy. ENCOUNTER: Initial ACUITY: 1 day PAIN SCORE: 0/10 LOCATION: Bilateral chest FINDINGS: A single view of the chest demonstrates minimal right lung density. Left lung clear. Heart is in the upper limits of normal in size. Osseous structures are intact. CONCLUSION: Minimal right lung density. Case Lema MD on October 23, 2017 at 6:09 Board Certified Radiologist. This report was verified electronically.
--- NOTE | 2017-10-23 07:54 | PD ---
Physical Exam Narrative GENERAL: 32-year-old female who appears uncomfortable SKIN: Focused skin assessment warm/dry. HEAD: Atraumatic. Normocephalic. EYES: Pupils equal and round. No scleral icterus. No injection or drainage. ENT: No nasal bleeding or discharge. Mucous membranes pink and moist. NECK: Trachea midline CARDIOVASCULAR: Regular rate and rhythm. RESPIRATORY: No accessory muscle use. No increased effort NEUROLOGICAL: Awake and alert. Motor grossly within normal limits. Normal speech. Data Data Last Documented VS Vital Signs Date Time Temp Pulse Resp B/P (MAP) Pulse Ox O2 Delivery O2 Flow Rate FiO2 10/23/17 09:35 107 20 131/65 (87) 98 Room Air 10/23/17 08:55 100.3 Orders Orders Sepsis Workup Initiated (10/23/17 ) Complete Blood Count With Diff (10/23/17 04:30) Comprehensive Metabolic Panel (10/23/17 04:30) Beta Hcg (Quant/Titer) (10/23/17 04:30) Prothrombin Time / Inr (Pt) (10/23/17 04:30) Act Partial Throm Time (Ptt) (10/23/17 04:30) Lactic Acid Sepsis Protocol (10/23/17 04:30) Urinalysis - C+S If Indicated (10/23/17 04:30) Influenzae A/B Antigen (10/23/17 04:30) Blood Culture (10/23/17 04:30) Chest, Single Ap (10/23/17 04:30) Blood Glucose (10/23/17 04:30) Ecg Monitoring (10/23/17 04:30) Iv Access Insert/Monitor (10/23/17 04:30) Oximetry (10/23/17 04:30) Oxygen Administration (10/23/17 04:30) Acetaminophen (Tylenol) (10/23/17 04:30) Sodium Chlor 0.9% 1000 Ml Inj (Ns 1000 M (10/23/17 04:30) Sodium Chlor 0.9% 1000 Ml Inj (Ns 1000 M (10/23/17 04:30) Ed Urine Pregnancytest Poc (10/23/17 04:30) Hydromorphone Pf Inj (Dilaudid Pf Inj) (10/23/17 04:30) Ct Abd/Pel W Iv Contrast(Rout) (10/23/17 ) Mri C Spine W&W/O Contrast (10/23/17 ) Mri L Spine W&W/O Contrast (10/23/17 ) Mri T Spine W & W/O Contrast (10/23/17 ) Drug Screen, Random Urine (10/23/17 04:35) Vancomycin Inj (Vancomycin Inj) (10/23/17 05:00) Ceftriaxone Inj (Rocephin Inj) (10/23/17 05:00) Iohexol 350 Inj (Omnipaque 350 Inj) (10/23/17 05:40) Lorazepam Inj (Ativan Inj) (10/23/17 08:00) Hydromorphone Pf Inj (Dilaudid Pf Inj) (10/23/17 08:00) Admit Order (Ed Use Only) (10/23/17 09:36) Labs Laboratory Tests Test 10/23/17 04:35 White Blood Count 7.0 TH/MM3 Red Blood Count 4.54 MIL/MM3 Hemoglobin 11.4 GM/DL Hematocrit 33.4 % Mean Corpuscular Volume 73.5 FL Mean Corpuscular Hemoglobin 25.1 PG Mean Corpuscular Hemoglobin Concent 34.1 % Red Cell Distribution Width 15.1 % Platelet Count 247 TH/MM3 Mean Platelet Volume 6.7 FL Neutrophils (%) (Auto) 78.9 % Lymphocytes (%) (Auto) 15.3 % Monocytes (%) (Auto) 5.2 % Eosinophils (%) (Auto) 0.1 % Basophils (%) (Auto) 0.5 % Neutrophils # (Auto) 5.5 TH/MM3 Lymphocytes # (Auto) 1.1 TH/MM3 Monocytes # (Auto) 0.4 TH/MM3 Eosinophils # (Auto) 0.0 TH/MM3 Basophils # (Auto) 0.0 TH/MM3 CBC Comment DIFF FINAL Differential Comment Blood Urea Nitrogen 7 MG/DL Creatinine 0.84 MG/DL Random Glucose 88 MG/DL Total Protein 7.1 GM/DL Albumin 3.1 GM/DL Calcium Level 8.5 MG/DL Alkaline Phosphatase 93 U/L Aspartate Amino Transf (AST/SGOT) 13 U/L Alanine Aminotransferase (ALT/SGPT) 23 U/L Total Bilirubin 0.6 MG/DL Sodium Level 137 MEQ/L Potassium Level 3.4 MEQ/L Chloride Level 104 MEQ/L Carbon Dioxide Level 26.6 MEQ/L Anion Gap 6 MEQ/L Estimat Glomerular Filtration Rate 79 ML/MIN Lactic Acid Level 0.7 mmol/L Human Chorionic Gonadotropin, Quant LESS THAN 1 MIU/ML MDM Supervised Visit with MICHAEL: No Narrative Course 750 patient came back from MRI and staff states she could not tolerate. Patient is requesting Ativan and something more for pain. Given 1 mg of Ativan and as she is already had Dilaudid 1 mg we will give small dose of 0.2 as she is also concurrently having Ativan. 810 patient still could not tolerate MRI and refusing to go back, demanding water and more medication, I informed patient we should give medicine more time to take effort and we will reassess in 15 minutes on reassess patient more sedated but still refusing MRI, patient agrees to admit for pneumonia, will admit for further care Sepsis Criteria SIRS Criteria (2 or more): Temp > 100.9 or < 96.8, Heart rate over 90 Sepsis Criteria (SIRS+source): Infect source susp/known Criteria Outcome: Meets sepsis criteria Physician Communication Physician Communication Signed over to me to follow MRIs and admit dr alejandra agrees to admit Diagnosis Primary Impression: Sepsis Qualified Codes: A41.9 - Sepsis, unspecified organism Additional Impressions: Pneumonia Qualified Codes: J18.9 - Pneumonia, unspecified organism IVDU (intravenous drug user) Admitting Information Admitting Physician Requests: Observation Scripts No Active Prescriptions or Reported Meds Desirae Hughes MD Oct 23, 2017 07:54
[2017-10-23] MEDS ORDERED: LORazepam 2 MG/ML VIAL IV PUSH ONE (08:00)
[2017-10-23] MEDS ORDERED: HYDROmorphone HCL PF 0.5 MG/0.5 ML SYRINGE IV PUSH ONE (08:00)
[2017-10-23] MEDS ORDERED: NALOXONE HCL 0.4 MG/ML AMP IV PUSH PRN (10:00)
[2017-10-23] MEDS ORDERED: SODIUM CHLORIDE 0.9% FLUSH 10 ML FLUSH IV FLUSH PRN (10:00)
--- NOTE | 2017-10-23 10:11 | HHI.HP ---
HPI Service [facility] Primary Care Physician Unknown Admission Diagnosis pneumonia, IVDA Diagnoses: Travel History International Travel<30 Days: No Contact w/Intl Traveler <30 Da: No Traveled to Known Affected Are: No History of Present Illness History from patient, ER physician communication, interview of medical records. Patient reported that she came to the hospital because she has been having right flank pain which started yesterday. She also reports a burning urination and pain on urination. She denies any cough to me. She reports she has a fever at home as well. Per ER report, patient is also IV drug user. Patient has multiple track ely on her skin. In the emergency room, the ER physician had given patient Ativan IV and morphine IV prior to my arrival. ER report states that they wanted to obtain MRI of the spine to rule out infection in a IV drug abuser. Patient was negotiated and protein in her care with the ER physician and was refusing for the MRI even though she is very well sedated. Patient also has prior history of septic arthritis. Her chest x-ray showed minimal possible infiltrate and admission was given to medical service for treatment of pneumonia. Her white count is normal. Her lactate is 0.7. She was given a total of Dilaudid 1.2 mg and Ativan 1 mg. Patient was also given Rocephin and vancomycin IV in ER. Her documented fever was 1 to ER as well. She was given Tylenol for this. At the time of my arrival, patient is quite sedated. She is asking me for more pain medications. She answers questions minimally but would fall straight back to sleep. She asked me for a Gatorade which I brought to her and she was able to drink that though. When I told her that I was not in and give her any pain medications and she is very well sedated, she asked for me to sign her out. She states that her friend Kai will come pick her up and she would like to leave the hospital AGAINST MEDICAL ADVICE. She then refused to answer any of her previous medical history and social history. Review of Systems ROS Limitations: Poor Historian Past Family Social History Past Medical History Per EMR: Hepatitis C IVDU/polysubstance abuse. Patient has used IV Dilaudid in the past. HX of sepsis secondary to staph aureus 05/2016 Hx of septic left knee joint Hx of endocarditis Seizures Anxiety/depression Liver cirrhosis DVT RLE Migraines Asthma Past Surgical History Per EMR: Liver biopsy Cholecystectomy Biliary stent placement Allergies: Coded Allergies: acetaminophen (Unverified Allergy, Severe, SWELLING,HIVES, 09/14/17) ketorolac (Unverified Allergy, Severe, 09/14/17) propoxyphene (Unverified Allergy, Severe, SWELLING,HIVES, 09/14/17) tetanus immune globulin (Unverified Allergy, Severe, SICK, FEVER, 09/14/17) tetanus toxoid, adsorbed (Unverified Allergy, Severe, SWELLING,HIVES, ) tramadol (Unverified Allergy, Severe, Anaphylaxis, 09/14/17) latex (Unverified Allergy, Intermediate, SWELLING, 09/14/17) Has an allergy to latex tape penicillin G (Unverified Allergy, Intermediate, rash, 09/14/17) morphine (Verified Allergy, Unknown, Anaphylaxis, 10/23/17) Family History Per EMR: CAD, diabetes in the family. Social History Per EMR: Patient is a chronic smoker. She uses IV drugs. No alcohol abuse. Physical Exam Vital Signs Vital Signs Date Time Temp Pulse Resp B/P (MAP) Pulse Ox O2 Delivery O2 Flow Rate FiO2 10/23/17 09:35 107 20 131/65 (87) 98 Room Air 10/23/17 08:55 100.3 10/23/17 06:45 99 16 118/57 (77) 98 Room Air 10/23/17 04:26 102.0 107 18 134/83 (100) 99 Physical Exam GENERAL: This is a well-nourished, well-developed patient, in no apparent distress. Mostly sedated and fall straight back to sleep during conversation SKIN: Multiple skin track ely all over. HEAD: Atraumatic. Normocephalic. No temporal or scalp tenderness. EYES: No scleral icterus. No injection or drainage. ENT: Nose without bleeding, purulent drainage or septal hematoma. Airway patent. NECK: Trachea midline. No JVD. Supple, nontender, no meningeal signs. CARDIOVASCULAR: Regular rate and rhythm without murmurs, gallops, or rubs. RESPIRATORY: Clear to auscultation. Breath sounds equal bilaterally. No wheezes , rales, or rhonchi. GASTROINTESTINAL: Abdomen soft, non-tender, nondistended.. No guarding. Right flank pain on examination. However I was also unable to distract the patient to examine it objectively. Absolutely no pain on palpation of her spine MUSCULOSKELETAL: Extremities without clubbing, cyanosis, or edema. No calf tenderness NEUROLOGICAL: Awake. Sleepy. Not participating fully in exam Normal speech. Laboratory Laboratory Tests Test 10/23/17 04:35 White Blood Count 7.0 Red Blood Count 4.54 Hemoglobin 11.4 Hematocrit 33.4 Mean Corpuscular Volume 73.5 Mean Corpuscular Hemoglobin 25.1 Mean Corpuscular Hemoglobin Concent 34.1 Red Cell Distribution Width 15.1 Platelet Count 247 Mean Platelet Volume 6.7 Neutrophils (%) (Auto) 78.9 Lymphocytes (%) (Auto) 15.3 Monocytes (%) (Auto) 5.2 Eosinophils (%) (Auto) 0.1 Basophils (%) (Auto) 0.5 Neutrophils # (Auto) 5.5 Lymphocytes # (Auto) 1.1 Monocytes # (Auto) 0.4 Eosinophils # (Auto) 0.0 Basophils # (Auto) 0.0 CBC Comment DIFF FINAL Differential Comment Blood Urea Nitrogen 7 Creatinine 0.84 Random Glucose 88 Total Protein 7.1 Albumin 3.1 Calcium Level 8.5 Alkaline Phosphatase 93 Aspartate Amino Transf (AST/SGOT) 13 Alanine Aminotransferase (ALT/SGPT) 23 Total Bilirubin 0.6 Sodium Level 137 Potassium Level 3.4 Chloride Level 104 Carbon Dioxide Level 26.6 Anion Gap 6 Estimat Glomerular Filtration Rate 79 Lactic Acid Level 0.7 Human Chorionic Gonadotropin, Quant LESS THAN 1 Date/Time Source Procedure Growth Status 10/23/17 04:40 Blood Peripheral Aerobic Blood Culture Pending Received 10/23/17 04:40 Blood Peripheral Anaerobic Blood Culture Pending Received 10/23/17 04:45 Nasal Washing Influenza Types A,B Antigen (PASHA) - Final NEGATIVE FOR FLU A AND B ANTIGEN.... Complete Result Diagram: 10/23/1743410/23/17434 Imaging Last 48 hours Impressions Chest X-Ray 10/23/17429 Signed Impressions: Service Date/Time: October 04:46 - CONCLUSION: Minimal right lung density. Case F. Tocci, MD Abdomen/Pelvis CT 10/23/17 0000 Signed Impressions: Service Date/Time: October 05:36 - CONCLUSION: 1. No acute inflammatory process. 2. Mild splenomegaly. 3. Status post cholecystectomy. 4. Patchy opacities right lower lobe. MD Nitin Carlson VTE Risk Assessment Caprini VTE Risk Assessment: Mod/High Risk (score >= 2) Caprini Risk Assessment Model Point Value = 1 Point Value = 2 Point Value = 3 Point Value = 5 Age 41-60 Minor surgery BMI > 25 kg/m2 Swollen legs Varicose veins or History of unexplained or recurrent spontaneous Oral contraceptives or hormone replacement Sepsis (< 1 month) Serious lung disease, including pneumonia (< 1 month) Abnormal pulmonary function Acute myocardial infarction Congestive heart failure (< 1 month) History of inflammatory bowel disease Medical patient at bed rest Age 61-74 Arthroscopic surgery Major open surgery (> 45 min) Laparoscopic surgery (> 45 min) Malignancy Confined to bed (> 72 hours) Immobilizing plaster cast Central venous access Age >= 75 History of VTE Family history of VTE Factor V Leiden Prothrombin [id number] Lupus anticoagulant Anticardiolipin antibodies Elevated serum homocysteine Heparin-induced thrombocytopenia Other congenital or acquired thrombophilia Stroke (< 1 month) Elective arthroplasty Hip, pelvis, or leg fracture Acute spinal cord injury (< 1 month) Prophylaxis Regimen Total Risk Factor Score Risk Level Prophylaxis Regimen 0-1 Low Early ambulation 2 Moderate Order ONE of the following: *Sequential Compression Device (SCD) *Heparin 5000 units SQ BID 3-4 Higher Order ONE of the following medications: *Heparin 5000 units SQ TID *Enoxaparin/Lovenox 40 mg SQ daily (WT < 150 kg, CrCl > 30 mL/min) *Enoxaparin/Lovenox 30 mg SQ daily (WT < 150 kg, CrCl > 10-29 mL/min) *Enoxaparin/Lovenox 30 mg SQ BID (WT < 150 kg, CrCl > 30 mL/min) AND/OR *Sequential Compression Device (SCD) 5 or more Highest Order ONE of the following medications: *Heparin 5000 units SQ TID (Preferred with Epidurals) *Enoxaparin/Lovenox 40 mg SQ daily (WT < 150 kg, CrCl > 30 mL/min) *Enoxaparin/Lovenox 30 mg SQ daily (WT < 150 kg, CrCl > 10-29 mL/min) *Enoxaparin/Lovenox 30 mg SQ BID (WT < 150 kg, CrCl > 30 mL/min) AND *Sequential Compression Device (SCD) Assessment and Plan Assessment and Plan Impression: Right flank pain Suspect malingering for pain medications. Possible UTI with right pyelonephritis Right lower lobe pneumonia Hepatitis C IVDU/polysubstance abuse. Patient has used IV Dilaudid in the past. HX of sepsis secondary to staph aureus 05/2016 Hx of septic left knee joint Hx of endocarditis Seizures Anxiety/depression Liver cirrhosis DVT RLE Migraines Asthma Plan: Will follow-up blood culture results. Patient was given Rocephin and vancomycin in ER. Collect UA and urine culture if indicated. At this point, I would continue Vanco and Zosyn for possible UTI/bacteremia and IVDA. No pain medications as patient is very well sedated and we need to have objective evidence to examine her. As patient likes to sign out AGAINST MEDICAL ADVICE, I would sign her out if she is more awake and walking around in ER. At this point, she is sleepy and I suspect she will go straight back to sleep once I leave the room. When she wakes up more, I suspect that she would ask for more pain meds and would sign out AMA if she does not get her choice of Dilaudid. Nursing is informed that patient would like to sign out AMA but to call me if she is more awake and alert and walking around so that I could sign her out. I will at that point explained to her the risk and benefits. DVT prophylaxis with ambulation. Discussed Condition With Patient, ER physician, ER nurse Don Lazaro MD Oct 23, 2017 10:11
[2017-10-23] MEDS ORDERED: POTASSIUM CHLORIDE 25 MEQ EFFERVESCENT TAB PO ONE (10:15)
[2017-10-23 11:53] LABS: BILIRUBIN, URINE NEG (NEG); BLOOD, URINE NEG (NEG); GLUCOSE,URINE NEG (NEG); KETONE, URINE NEG (NEG); NITRITE,URINE NEG (NEG); PH, URINE 5.5 (5.0-8.5); SQUAMOUS EPITHELIAL CELL URINE 5 /hpf (0-5); URINE COLOR LIGHT-YELLOW (YELLW/STRAW); URINE LEUKOCYTE ESTERASE NEG (NEG)
[2017-10-23] MEDS ORDERED: Vancomycin Consult Pharmacy 1 EA OTHER SCH (12:15)
[2017-10-23 12:45] LABS: INTERNATIONAL NORMALIZED RATIO 1.2 RATIO; PROTHROMBIN TIME - PATIENT 12.6 SEC (9.8-11.6)
[2017-10-23] MEDS: CEFEPIME INJ 2,000 MG in SODIUM CHLORIDE 0.9% INJ 100 ML IV SCH (12:58)
[2017-10-23] MEDS: VANCOMYCIN INJ 1,750 MG in SODIUM CHLORID 0.9% 500 ML INJ 500 ML IV SCH (21:33)
[2017-10-24] VITALS: PULSE 112
[2017-10-24] MEDS: SODIUM CHLORIDE 0.9% FLUSH 10 ML FLUSH IV FLUSH SCH ×2 (00:32→08:40)
[2017-10-24] MEDS: CEFEPIME INJ 2,000 MG in SODIUM CHLORIDE 0.9% INJ 100 ML IV SCH ×2 (00:34→06:08)
[2017-10-24 04:15] VITALS: BP 124/68; PULSE 94; RESP 22; TEMP 98.4; O2SAT 94
[2017-10-24] MEDS: VANCOMYCIN INJ 1,750 MG in SODIUM CHLORID 0.9% 500 ML INJ 500 ML IV SCH (06:50)
[2017-10-24 08:44] VITALS: BP 119/73; PULSE 89; RESP 18; TEMP 98.3; O2SAT 99
[2017-10-24 11:15] VITALS: BP 147/88; PULSE 88; RESP 18; TEMP 99.5; O2SAT 96
[2017-10-24] MEDS ORDERED: ONDANSETRON HCL 4 MG/2 ML VIAL IV PUSH PRN (12:00)
--- NOTE | 2017-10-24 13:46 | PD.AMA ---
Against Medical Advice Note Discharge Disposition: Against Medical Advice Pt Condition on Discharge: Guarded AMA Statement Patient Jewell Moulton has decided to leave the hospital against medical advice. This patient has the capacity to refuse care and understands the risks of leaving, including permanent disability and/or , and has had an opportunity to ask questions about her condition. The patient has been informed that she may return for care at any time, and follow up has been arranged/ advised. As per RN report the patient eloped from the hospital and was found outside by hospital security. However patient stating she wants to leave and is refusing to come back into the hospital. Patient wants to leave AMA. Patient admitted with right flank pain and UTI which is criteria. Patient had positive blood cultures positive for MRSA. Suggested plan of care was to consult infectious disease, continue IV antibiotics and follow-up blood cultures. Also an echocardiogram was going to be ordered. Patient refused any care and decided to leave AMA. Herminio Rabago MD Oct 24, 2017 13:46
[2017-10-25] MEDS ORDERED: PHARMACY ORDERED LAB ONE (05:45)
== END 2017-10-24 14:28 | disposition left against medical advice (07) ==
LOC: NEPC 04:20 → NEDA 09:37 → NEPHCDU 16:39
PROVIDERS: ADMIT Hospitalist; ATTEND Hospitalist
DX: J18.9 Pneumonia, unspecified organism (principal); R10.9 Unspecified abdominal pain; R30.0 Dysuria; A41.9 Sepsis, unspecified organism; B19.20 Unspecified viral hepatitis C without hepatic coma; K74.60 Unspecified cirrhosis of liver; F41.9 Anxiety disorder, unspecified; F32.9 Major depressive disorder, single episode, unspecified; J45.909 Unspecified asthma, uncomplicated; R16.1 Splenomegaly, not elsewhere classified; R91.8 Other nonspecific abnormal finding of lung field; M54.9 Dorsalgia, unspecified; F17.200 Nicotine dependence, unspecified, uncomplicated
CPT/HCPCS: 71045; 74177; 80053; 80307; 81001; 83605; 84702; 84703; 85025; 85610; 85730; 86403; 87040; 87149; 87186; 87205; 87804; 96365; 96366; 96367; 96375; 96376; 99285; G0378; J0692; J0696; J1170; J2060; J2405; J3370; J7030; J7040; J7050; Q9967